=== PATIENT | male | born 1985 | race Caucasian/White ===

== ENCOUNTER 2017-08-22 17:21 | Emergency (ER) | payer MEDICAID ==
[~2017-08-22] VITALS: Ht 177.8 cm; Wt 113.0 kg
[~2017-08-22 17:21] MED LIST: HYDR-569 PO; NO HOME MEDS; PHEN-716 PO
[2017-08-22 17:46] VITALS: BP 131/39
[2017-08-22] MEDS ORDERED: dexamethasone sod phosphate 10mg/ml inj PO STA (18:31)
[2017-08-22] MEDS ORDERED: triamcinolone acetonide 40mg/ml inj IM ONE ×2 (18:35→19:05)
== END 2017-08-22 20:04 | disposition home or self-care (01) ==
LOC: ER 17:21
DX: M54.81 Occipital neuralgia (principal); J35.8 Other chronic diseases of tonsils and adenoids; J02.9 Acute pharyngitis, unspecified; L23.7 Allergic contact dermatitis due to plants, except food; J45.909 Unspecified asthma, uncomplicated; F12.90 Cannabis use, unspecified, uncomplicated; Z98.890 Other specified postprocedural states; Z79.899 Other long term (current) drug therapy
CPT/HCPCS: 96372; 99283; J1100; J3301

== ENCOUNTER 2017-09-16 17:09 | Emergency (ER) | payer MEDICAID ==
[2017-09-16] MEDS ORDERED: PRED10TA PO (17:37)
[2017-09-16] MEDS ORDERED: KEN0.1O TP (17:37)
== END 2017-09-16 17:59 | disposition home or self-care (01) ==
LOC: ER 17:09
DX: L23.7 Allergic contact dermatitis due to plants, except food (principal); F12.90 Cannabis use, unspecified, uncomplicated; J45.909 Unspecified asthma, uncomplicated; Z98.890 Other specified postprocedural states; Z79.899 Other long term (current) drug therapy
CPT/HCPCS: 99283

== ENCOUNTER 2018-02-03 20:17 | Emergency (ER) | payer MEDICAID ==
[~2018-02-03] VITALS: Ht 177.8 cm; Wt 113.6 kg
[~2018-02-03 20:17] MED LIST changes: +ASPI-41 PO; +ATOR20TA66 PO; +COL100C PO; +HYDR-4353 PO; -HYDR-569 PO; +LISI-604 PO; +LORA-269 PO; +METO50TA16 PO; +ONDA4TAB9 PO; -PHEN-716 PO
[2018-02-03 21:45] VITALS: BP 106/55
== END 2018-02-03 21:46 | disposition home or self-care (01) ==
LOC: ER 20:18
DX: I10 Essential (primary) hypertension (principal); Z48.812 Encounter for surgical aftercare following surgery on the circulatory system; I25.2 Old myocardial infarction; J45.909 Unspecified asthma, uncomplicated; F12.90 Cannabis use, unspecified, uncomplicated; Z90.49 Acquired absence of other specified parts of digestive tract; Z98.890 Other specified postprocedural states; Z79.82 Long term (current) use of aspirin; Z79.899 Other long term (current) drug therapy
CPT/HCPCS: 93005; 99283

== ENCOUNTER 2018-02-08 08:32 | Emergency (ER) | payer MEDICAID ==
[~2018-02-08] VITALS: Ht 177.8 cm; Wt 110.9 kg
[2018-02-08 08:36] VITALS: BP 135/72
[2018-02-08] MEDS ORDERED: HYDR-4353 PO (08:48)
[2018-02-08] MEDS ORDERED: ONDA4TAB9 PO (08:49)
== END 2018-02-08 09:20 | disposition home or self-care (01) ==
LOC: ER 08:32
DX: G89.18 Other acute postprocedural pain (principal); I25.2 Old myocardial infarction; J45.909 Unspecified asthma, uncomplicated; F12.90 Cannabis use, unspecified, uncomplicated; Z76.0 Encounter for issue of repeat prescription; Z48.812 Encounter for surgical aftercare following surgery on the circulatory system; Z79.899 Other long term (current) drug therapy; Z90.49 Acquired absence of other specified parts of digestive tract; Z95.1 Presence of aortocoronary bypass graft
CPT/HCPCS: 99283

== ENCOUNTER 2018-02-18 00:57 | Emergency (ER) | payer MEDICAID ==
[~2018-02-18] VITALS: Ht 177.8 cm; Wt 120.0 kg
[2018-02-18] MEDS ORDERED: morphine 4 MG/ML inj SYRINge IV ONE (01:15)
[2018-02-18] MEDS ORDERED: aspirin 81mg tab.chew PO ONE (01:15)
[2018-02-18] MEDS ORDERED: ondansetron/PF 4mg/2ml inj IV ONE (01:15)
[2018-02-18 01:42] LABS: HEMOGLOBIN 12.8 g/dl (14.0-17.9); LYMPHOCYTES % (AUTO) 36.1 % (21-51); MEAN CORPUSCULAR HGB CONC 34.6 % (33.0-36.5); MEAN PLATELET VOLUME 10.1 FL (7.4-10.4); NEUTROPHILS % (AUTO) 53.3 % (42-75); PLATELET COUNT 215 X10'3 (140-440); RED BLOOD COUNT 4.41 X10'6 (4.70-6.10); RED CELL DISTRIBUTION WIDTH 12.2 % (11.5-14.5)
[2018-02-18 01:43] LABS: BASOPHILS % (AUTO) 0.5 % (0-1); EOSINOPHILS # (AUTO) 0.4 X10'3 (0-0.9); EOSINOPHILS % (AUTO) 3.6 % (0-6); LYMPHOCYTES # (AUTO) 3.6 X10'3 (1.1-4.8); MONOCYTES # (AUTO) 0.6 X10'3 (0-0.9); MONOCYTES % (AUTO) 6.5 % (2-12); NEUTROPHILS # (AUTO) 5.4 X10'3 (1.8-7.7)
[2018-02-18 01:49] LABS: INR 1.1 INR; PARTIAL THROMBOPLASTIN TIME 30 SECONDS (22-32); PROTHROMBIN TIME 10.7 SECONDS (9.0-12.0)
[2018-02-18 01:52] LABS: ALANINE AMINOTRANSFERASE 49 U/L (12-78); ALBUMIN/GLOBULIN RATIO 1.2 (1.1-1.5); ALKALINE PHOSPHATASE 78 IU/L (46-116); ANION GAP 10 (8-16); ASPARTATE AMINO TRANSFERASE 19 U/L (10-37); BILIRUBIN,TOTAL 0.3 MG/DL (0.1-1.0); BLOOD UREA NITROGEN 23 MG/DL (7-18); BUN/CREATININE RATIO 21.5 (5.4-32.0); CALCIUM 9.4 MG/DL (8.5-10.1); CHLORIDE 101 MMOL/L (99-107); CREATININE 1.07 MG/DL (0.60-1.10); GLUCOSE 97 MG/DL (70-104); POTASSIUM 4.1 MMOL/L (3.5-5.1); SODIUM 140 MMOL/L (135-145); TOTAL CARBON DIOXIDE 28.8 MMOL/L (24-32); TOTAL PROTEIN 7.3 G/DL (6.4-8.2); eGFR 80 ML/MIN
[2018-02-18 01:58] LABS: CHOLESTEROL 154 MG/DL (0-200); HDL CHOLESTEROL 31 MG/DL (35-60); LDL CHOLESTEROL 78 MG/DL (50-100); MAGNESIUM 1.8 MG/DL (1.5-2.4); TRIGLYCERIDES 480 MG/DL (20-135)
[2018-02-18 03:18] VITALS: BP 135/72
[2018-02-18 04:25] LABS: URINE AMPHETAMINE SCREEN NEGATIVE (Neg); URINE BARBITUATE SCREEN NEGATIVE (Neg); URINE BENZODIAZEPINES SCREEN NEGATIVE (Neg); URINE CANNABINOID SCREEN POSITIVE (Neg); URINE COCAINE SCREEN NEGATIVE (Neg); URINE METHADONE SCREEN NEGATIVE (Neg); URINE OPIATE SCREEN POSITIVE (Neg); URINE PHENCYCLIDINE SCREEN NEGATIVE (Neg)
== END 2018-02-18 05:37 | disposition home or self-care (01) ==
LOC: ER 00:57
DX: R07.89 Other chest pain (principal); I25.10 Atherosclerotic heart disease of native coronary artery without angina pectoris; I25.2 Old myocardial infarction; J45.909 Unspecified asthma, uncomplicated; E78.00 Pure hypercholesterolemia, unspecified; F41.9 Anxiety disorder, unspecified; F12.10 Cannabis abuse, uncomplicated; Z90.49 Acquired absence of other specified parts of digestive tract; Z79.82 Long term (current) use of aspirin; Z79.899 Other long term (current) drug therapy; Z95.1 Presence of aortocoronary bypass graft
CPT/HCPCS: 36415; 71045; 80053; 80061; 80305; 83735; 83880; 84484; 85025; 85610; 85730; 93005; 96374; 96375; 99284; J2270; J2405

== ENCOUNTER 2018-03-04 13:17 | Emergency (ER) | payer MEDICAID ==
[~2018-03-04] VITALS: Ht 177.8 cm; Wt 113.6 kg
[~2018-03-04 13:17] MED LIST changes: -HYDR-4353 PO
[2018-03-04 13:30] VITALS: BP 161/94
[2018-03-04] MEDS ORDERED: gentamicin 0.1% topical ointment 15gm TP SCH (17:05)
[2018-03-04] MEDS ORDERED: METO50TA17 PO ×2 (17:08→17:21)
[2018-03-04] MEDS ORDERED: HYDR-4353 PO (17:08)
[2018-03-04] MEDS ORDERED: LORA1TAB PO (17:21)
== END 2018-03-04 17:33 | disposition home or self-care (01) ==
LOC: ER 13:18
DX: R07.89 Other chest pain (principal); F41.9 Anxiety disorder, unspecified; I25.10 Atherosclerotic heart disease of native coronary artery without angina pectoris; I25.2 Old myocardial infarction; J45.909 Unspecified asthma, uncomplicated; F12.90 Cannabis use, unspecified, uncomplicated; Z90.49 Acquired absence of other specified parts of digestive tract; Z98.890 Other specified postprocedural states; Z79.82 Long term (current) use of aspirin; Z79.899 Other long term (current) drug therapy; Z95.1 Presence of aortocoronary bypass graft
CPT/HCPCS: 93005; 99283

== ENCOUNTER 2018-03-08 08:15 | Emergency (ER) | payer MEDICAID ==
[~2018-03-08] VITALS: Ht 177.8 cm; Wt 113.6 kg
[~2018-03-08 08:15] MED LIST changes: +HYDR-4353 PO; +LORA1TAB PO; +METO50TA17 PO
[2018-03-08] MEDS ORDERED: aspirin 81mg tab.chew PO ONE (08:35)
[2018-03-08 09:11] LABS: BASOPHILS % (AUTO) 0.5 % (0-1); EOSINOPHILS # (AUTO) 0.2 X10'3 (0-0.9); EOSINOPHILS % (AUTO) 3.4 % (0-6); HEMATOCRIT 40.7 % (42.0-52.0); HEMOGLOBIN 13.3 g/dl (14.0-17.9); LYMPHOCYTES # (AUTO) 2.7 X10'3 (1.1-4.8); LYMPHOCYTES % (AUTO) 41.2 % (21-51); MEAN CORPUSCULAR HEMOGLOBIN 27.8 PG (27.0-31.0); MEAN CORPUSCULAR HGB CONC 32.8 % (33.0-36.5); MEAN PLATELET VOLUME 9.7 FL (7.4-10.4); MONOCYTES # (AUTO) 0.6 X10'3 (0-0.9); MONOCYTES % (AUTO) 8.6 % (2-12); NEUTROPHILS # (AUTO) 3.2 X10'3 (1.8-7.7); NEUTROPHILS % (AUTO) 46.3 % (42-75); PLATELET COUNT 192 X10'3 (140-440); RED BLOOD COUNT 4.78 X10'6 (4.70-6.10); RED CELL DISTRIBUTION WIDTH 12.5 % (11.5-14.5); WHITE BLOOD COUNT 6.7 X10'3 (4.5-11.0)
[2018-03-08 09:25] LABS: ALANINE AMINOTRANSFERASE 42 U/L (12-78); ALBUMIN 3.9 G/DL (3.4-5.0); ALBUMIN/GLOBULIN RATIO 1.1 (1.1-1.5); ALKALINE PHOSPHATASE 79 IU/L (46-116); ANION GAP 11 (8-16); ASPARTATE AMINO TRANSFERASE 15 U/L (10-37); BILIRUBIN,TOTAL 0.4 MG/DL (0.1-1.0); BLOOD UREA NITROGEN 18 MG/DL (7-18); BUN/CREATININE RATIO 17.3 (5.4-32.0); CALCIUM 9.1 MG/DL (8.5-10.1); CHLORIDE 106 MMOL/L (99-107); CREATININE 1.04 MG/DL (0.60-1.10); GLUCOSE 108 MG/DL (70-104); POTASSIUM 4.2 MMOL/L (3.5-5.1); SODIUM 142 MMOL/L (135-145); TOTAL CARBON DIOXIDE 24.9 MMOL/L (24-32); TOTAL PROTEIN 7.3 G/DL (6.4-8.2); eGFR 83 ML/MIN
[2018-03-08] MEDS ORDERED: ketorolac tromethamine 15mg/ml inj. IV ONE (10:10)
[2018-03-08] MEDS ORDERED: ketorolac trometh. 30mg/ml inj. IV ONE (10:10)
[2018-03-08 10:21] VITALS: BP 135/80
== END 2018-03-08 10:24 | disposition home or self-care (01) ==
LOC: ER 08:16
DX: R07.89 Other chest pain (principal); I25.10 Atherosclerotic heart disease of native coronary artery without angina pectoris; I25.2 Old myocardial infarction; J45.909 Unspecified asthma, uncomplicated; F12.90 Cannabis use, unspecified, uncomplicated; Z90.49 Acquired absence of other specified parts of digestive tract; Z95.1 Presence of aortocoronary bypass graft; Z98.890 Other specified postprocedural states; Z79.82 Long term (current) use of aspirin; Z79.899 Other long term (current) drug therapy
CPT/HCPCS: 36415; 71045; 80053; 83735; 83880; 84484; 85025; 93005; 96374; 99284; J1885

== ENCOUNTER 2018-05-01 11:19 | Emergency (ER) | payer MEDICAID ==
[~2018-05-01] VITALS: Ht 177.8 cm; Wt 122.0 kg
[~2018-05-01 11:19] MED LIST changes: +ALPR-624 PO; -HYDR-4353 PO; -LORA1TAB PO; -ONDA4TAB9 PO
[2018-05-01 11:53] LABS: BASOPHILS # (AUTO) 0.1 X10'3 (0-0.2); EOSINOPHILS # (AUTO) 0.1 X10'3 (0-0.9); EOSINOPHILS % (AUTO) 1.7 % (0-6); HEMATOCRIT 43.3 % (42.0-52.0); HEMOGLOBIN 14.7 g/dl (14.0-17.9); LYMPHOCYTES # (AUTO) 2.3 X10'3 (1.1-4.8); LYMPHOCYTES % (AUTO) 36.1 % (21-51); MEAN CORPUSCULAR HEMOGLOBIN 28.3 PG (27.0-31.0); MEAN CORPUSCULAR HGB CONC 33.9 g/dL (33.0-36.5); MEAN CORPUSCULAR VOLUME 83.5 FL (78-98); MEAN PLATELET VOLUME 10.1 FL (7.4-10.4); MONOCYTES # (AUTO) 0.4 X10'3 (0-0.9); MONOCYTES % (AUTO) 6.8 % (2-12); NEUTROPHILS # (AUTO) 3.5 X10'3 (1.8-7.7); NEUTROPHILS % (AUTO) 54.4 % (42-75); PLATELET COUNT 199 X10'3 (140-440); RED BLOOD COUNT 5.18 X10'6 (4.70-6.10); RED CELL DISTRIBUTION WIDTH 14.1 % (11.5-14.5); WHITE BLOOD COUNT 6.4 X10'3 (4.5-11.0)
[2018-05-01 12:05] LABS: ALANINE AMINOTRANSFERASE 71 U/L (12-78); ALBUMIN 4.3 G/DL (3.4-5.0); ALBUMIN/GLOBULIN RATIO 1.2 (1.1-1.5); ALKALINE PHOSPHATASE 83 IU/L (46-116); ANION GAP 10 (8-16); ASPARTATE AMINO TRANSFERASE 35 U/L (10-37); BILIRUBIN,TOTAL 0.5 MG/DL (0.1-1.0); BLOOD UREA NITROGEN 19 MG/DL (7-18); BUN/CREATININE RATIO 20.9 (5.4-32.0); CALCIUM 9.6 MG/DL (8.5-10.1); CHLORIDE 104 MMOL/L (99-107); CREATININE 0.91 MG/DL (0.60-1.10); GLUCOSE 109 MG/DL (70-104); POTASSIUM 4.5 MMOL/L (3.5-5.1); SODIUM 138 MMOL/L (135-145); TOTAL CARBON DIOXIDE 24.3 MMOL/L (24-32); eGFR > 90 ML/MIN
[2018-05-01 12:14] LABS: PROTHROMBIN TIME 10.3 SECONDS (9.0-12.0)
[2018-05-01 12:15] LABS: PARTIAL THROMBOPLASTIN TIME 29 SECONDS (22-32)
[2018-05-01 12:41] LABS: D-DIMER < 0.19 MG/L FEU (0-0.50)
[2018-05-01 13:04] VITALS: BP 118/61
== END 2018-05-01 13:06 | disposition home or self-care (01) ==
LOC: ER 11:20
DX: R07.9 Chest pain, unspecified (principal); I25.10 Atherosclerotic heart disease of native coronary artery without angina pectoris; I25.2 Old myocardial infarction; J45.909 Unspecified asthma, uncomplicated; F12.90 Cannabis use, unspecified, uncomplicated; Z90.49 Acquired absence of other specified parts of digestive tract; Z79.82 Long term (current) use of aspirin; Z79.899 Other long term (current) drug therapy; Z98.890 Other specified postprocedural states
CPT/HCPCS: 36415; 71045; 80053; 83880; 84484; 85025; 85379; 85610; 85730; 93005; 99284

== ENCOUNTER 2018-06-01 19:00 | Emergency (ER) | payer MEDICAID ==
[~2018-06-01] VITALS: Ht 177.8 cm; Wt 118.2 kg
[~2018-06-01 19:00] MED LIST changes: -NO HOME MEDS
[2018-06-01 19:07] VITALS: BP 119/72
[2018-06-01] MEDS ORDERED: DOXY100C43 PO (21:30)
== END 2018-06-01 22:39 | disposition home or self-care (01) ==
LOC: ER 19:01
DX: L02.213 Cutaneous abscess of chest wall (principal); I25.2 Old myocardial infarction; J45.909 Unspecified asthma, uncomplicated; I25.10 Atherosclerotic heart disease of native coronary artery without angina pectoris; F12.90 Cannabis use, unspecified, uncomplicated; Z90.49 Acquired absence of other specified parts of digestive tract; Z95.1 Presence of aortocoronary bypass graft; Z79.899 Other long term (current) drug therapy; Z79.82 Long term (current) use of aspirin; Z98.890 Other specified postprocedural states
CPT/HCPCS: 10060; 99283

== ENCOUNTER 2018-06-08 12:09 | Observation (INO) | payer MEDICAID ==
[~2018-06-08] VITALS: Ht 177.8 cm; Wt 120.5 kg
[~2018-06-08 12:09] MED LIST changes: +DOXY100C43 PO
[2018-06-08 12:35] LABS: BASOPHILS # (AUTO) 0.1 X10'3 (0-0.2); BASOPHILS % (AUTO) 0.9 % (0-1); EOSINOPHILS # (AUTO) 0.2 X10'3 (0-0.9); EOSINOPHILS % (AUTO) 2.8 % (0-6); HEMATOCRIT 42.5 % (42.0-52.0); HEMOGLOBIN 14.5 g/dl (14.0-17.9); LYMPHOCYTES # (AUTO) 2.5 X10'3 (1.1-4.8); LYMPHOCYTES % (AUTO) 36.1 % (21-51); MEAN CORPUSCULAR HEMOGLOBIN 28.6 PG (27.0-31.0); MEAN CORPUSCULAR HGB CONC 34.2 g/dL (33.0-36.5); MEAN CORPUSCULAR VOLUME 83.7 FL (78-98); MEAN PLATELET VOLUME 10.2 FL (7.4-10.4); MONOCYTES # (AUTO) 0.6 X10'3 (0-0.9); MONOCYTES % (AUTO) 8.2 % (2-12); NEUTROPHILS # (AUTO) 3.6 X10'3 (1.8-7.7); PLATELET COUNT 203 X10'3 (140-440); RED BLOOD COUNT 5.08 X10'6 (4.70-6.10); RED CELL DISTRIBUTION WIDTH 14.7 % (11.5-14.5)
[2018-06-08] MEDS ORDERED: LORazepam 1 MG tablet PO ONE (12:45)
[2018-06-08 12:46] LABS: ALANINE AMINOTRANSFERASE 66 U/L (12-78); ALBUMIN 4.2 G/DL (3.4-5.0); ALBUMIN/GLOBULIN RATIO 1.2 (1.1-1.5); ALKALINE PHOSPHATASE 82 IU/L (46-116); ANION GAP 10 (8-16); ASPARTATE AMINO TRANSFERASE 39 U/L (10-37); BILIRUBIN,TOTAL 0.8 MG/DL (0.1-1.0); BLOOD UREA NITROGEN 15 MG/DL (7-18); BUN/CREATININE RATIO 15.5 (5.4-32.0); CALCIUM 9.6 MG/DL (8.5-10.1); CHLORIDE 105 MMOL/L (99-107); CREATININE 0.97 MG/DL (0.60-1.10); GLUCOSE 101 MG/DL (70-104); POTASSIUM 4.2 MMOL/L (3.5-5.1); SODIUM 139 MMOL/L (135-145); TOTAL CARBON DIOXIDE 23.7 MMOL/L (24-32); TOTAL PROTEIN 7.7 G/DL (6.4-8.2); eGFR 90 ML/MIN
[2018-06-08 12:54] LABS: D-DIMER < 0.19 MG/L FEU (0-0.50); INR 1.1 INR; PARTIAL THROMBOPLASTIN TIME 31 SECONDS (22-32); PROTHROMBIN TIME 10.7 SECONDS (9.0-12.0)
[2018-06-08] MEDS ORDERED: ASPI-845 PO (13:02)
[2018-06-08] MEDS ORDERED: ATOR80TA PO (13:02)
[2018-06-08] MEDS ORDERED: LISI-604 PO (13:02)
[2018-06-08] MEDS ORDERED: METO-467 PO (13:03)
[2018-06-08] MEDS ORDERED: mag hydrox/Alum hydrox/simeth 30ml oral suspension PO PRN (13:35)
[2018-06-08] MEDS ORDERED: nitroGLYCERIN 0.4mg SUBLingual tab SL PRN (13:35)
[2018-06-08] MEDS ORDERED: ondansetron/PF 4mg/2ml inj IV PRN (13:35)
[2018-06-08] MEDS ORDERED: regadenoson 0.4mg/5ml syringe IV ONE (13:35)
[2018-06-08] MEDS ORDERED: acetaminophen 325mg tablet PO PRN (13:35)
[2018-06-08] MEDS ORDERED: magnesium hydroxide 30ml (MOM) UD suspension PO PRN (13:35)
[2018-06-08] MEDS ORDERED: aminophylline 250mg/10ml inj. IV PRN (13:35)
[2018-06-08] MEDS ORDERED: metoprolol tartrate 1mg/ml inj IV PRN (13:35)
[2018-06-08] MEDS ORDERED: regadenoson 0.4mg/5ml syringe IV PRN (13:45)
--- NOTE | 2018-06-08 13:55 | NUR ---
DR DEJESUS HOSPITALIST STATED THAT PATIENT CAN EAT UNTIL MIDNIGHT
--- NOTE | 2018-06-08 16:28 | NUR ---
Patient in room [facility]. I have received report from Marley REDD and had the opportunity to ask questions and assume patient care.
[2018-06-08] MEDS: hydrOXYzine 25 MG tablet PO PRN ×2 (17:00→22:47)
[2018-06-08 17:03] VITALS: BP 121/69
--- NOTE | 2018-06-08 18:06 | NUR ---
Orientated to room. Tele placed. meds given for anxiety per dr Avina. No c/o chest pain, patient agreed to staay until stress test in am. as he is in the process of moving, and is very anxoius about this. report given to Shagufta REDD
[2018-06-08] MEDS: metoprolol tartrate 50mg tablet PO SCH (19:48)
[2018-06-08 20:00] VITALS: BP 134/60
[2018-06-09] VITALS (14 sets, daily range): BP systolic 109–149; BP diastolic 69–121
--- NOTE | 2018-06-09 02:20 | NUR ---
Patient in room [facility]. I have received report from IVANIA Baptiste and had the opportunity to ask questions and assume patient care. Addendum: 06/09/18 at 0221 by Shagufta Thomas RN Amended: Links added.
[2018-06-09 05:03] LABS: BASOPHILS % (AUTO) 0.7 % (0-1); EOSINOPHILS # (AUTO) 0.2 X10'3 (0-0.9); EOSINOPHILS % (AUTO) 3.6 % (0-6); HEMATOCRIT 40.7 % (42.0-52.0); HEMOGLOBIN 13.8 g/dl (14.0-17.9); LYMPHOCYTES # (AUTO) 3.2 X10'3 (1.1-4.8); LYMPHOCYTES % (AUTO) 46.5 % (21-51); MEAN CORPUSCULAR HEMOGLOBIN 28.5 PG (27.0-31.0); MEAN CORPUSCULAR HGB CONC 33.7 g/dL (33.0-36.5); MEAN CORPUSCULAR VOLUME 84.5 FL (78-98); MONOCYTES # (AUTO) 0.6 X10'3 (0-0.9); MONOCYTES % (AUTO) 8.7 % (2-12); NEUTROPHILS # (AUTO) 2.8 X10'3 (1.8-7.7); NEUTROPHILS % (AUTO) 40.5 % (42-75); PLATELET COUNT 168 X10'3 (140-440); RED BLOOD COUNT 4.82 X10'6 (4.70-6.10); RED CELL DISTRIBUTION WIDTH 14.4 % (11.5-14.5); WHITE BLOOD COUNT 6.8 X10'3 (4.5-11.0)
[2018-06-09 05:35] LABS: ALBUMIN 3.6 G/DL (3.4-5.0); ANION GAP 8 (8-16); BLOOD UREA NITROGEN 19 MG/DL (7-18); BUN/CREATININE RATIO 18.1 (5.4-32.0); CALCIUM 9.3 MG/DL (8.5-10.1); CHLORIDE 107 MMOL/L (99-107); CREATININE 1.05 MG/DL (0.60-1.10); GLUCOSE 104 MG/DL (70-104); SODIUM 140 MMOL/L (135-145); TROPONIN I < 0.04 NG/ML (0.0-0.05); eGFR 82 ML/MIN
--- NOTE | 2018-06-09 06:33 | NUR ---
Problems reprioritized. Patient report given, questions answered & plan of care reviewed with IVANIA Acharya. Addendum: 06/09/18 at 0634 by Shagufta Thomas RN Amended: Links added.
--- NOTE | 2018-06-09 07:18 | NUR ---
PAGER ID: [phone] MESSAGE: [id number] Davian Koch PT. has been NPO since midnight for stress test this AM. BP 109/73, HR 66 OK to give meds before test?: aspirin, lisinopril, metroprolol, atorvastatin? Patrizia [id number]
[2018-06-09] MEDS: metoprolol tartrate 50mg tablet PO SCH (07:24)
[2018-06-09] MEDS ORDERED: atorvastatin 20mg tablet PO SCH (08:00)
[2018-06-09] MEDS ORDERED: aspirin 325mg tablet, delayed-release (Ecotrin) PO SCH (08:00)
[2018-06-09] MEDS ORDERED: non-formulary drug (Atorvastatin Calcium (Lipitor) 1 TAB) PO SCH (08:00)
[2018-06-09] MEDS ORDERED: lisinopril 5mg tablet PO SCH (08:00)
--- NOTE | 2018-06-09 08:58 | NUR ---
PAGER ID: [phone] MESSAGE: [id number] SHARI Colon HAVING CURRENT CHEST PAIN AFTER LEXISCAN ADMIN. EKG RAN. MUST READ EKG WITHIN 10 MIN PER PROTOCOL. THANK YOU TRU REDD [id number] REPLIED IMMEDIATELY, READ EKG, NO STEMI, RECOMMENDED NITRO PRN PER ORDER AND ORDER URINE TOX., PT. REFUSED DUE TO ONCOMING LEXISCAN TEST AND DENIED HAVING CHEST PAIN ANYMORE. VITALS TAKEN AND WERE STABLE. WILL CONT. TO MONITOR ON MY SHIFT. PT. AWARE NITRO IS AVAILABLE ON FLOOR AND IN MINI TEST / NUCLEAR MED
[2018-06-09] MEDS ORDERED: aminophylline inj. 10 ML IV ONE (10:12)
[2018-06-09] MEDS ORDERED: regadenoson 0.4mg/5ml syringe IV ONE (10:13)
[2018-06-09] MEDS ORDERED: clonazePAM 0.5mg tablet PO PRN (10:45)
[2018-06-09 11:20] LABS: URINE AMPHETAMINE SCREEN NEGATIVE (Neg); URINE BARBITUATE SCREEN NEGATIVE (Neg); URINE BENZODIAZEPINES SCREEN NEGATIVE (Neg); URINE CANNABINOID SCREEN POSITIVE (Neg); URINE COCAINE SCREEN NEGATIVE (Neg); URINE METHADONE SCREEN NEGATIVE (Neg); URINE OPIATE SCREEN NEGATIVE (Neg); URINE PHENCYCLIDINE SCREEN NEGATIVE (Neg)
--- NOTE | 2018-06-09 13:13 | NUR ---
Patient was wanting to leave AMA due to his neighbor causing problems. I spoke to Dr Rebollar regarding patient wanting to leave AMA. Per Dr Rebollar he would like patient to be seen by a audience development manager due to abdnormal Stress test. Dr Rebollar stated I could give patient another dose of 0.25MG PO Klonopin, Dr Rebollar aware patient patient had 0.25mg PO 2 hours ago. I spoke to patient and he stated he will stay he does not want to leave if his test was abnormal. Patient very pleasant and compliant I told him if I get an available bed I will move him.
[2018-06-09] MEDS ORDERED: clonazePAM 0.5mg tablet PO ONE (13:15)
[2018-06-09] MEDS ORDERED: CLON-528 PO (15:16)
[2018-06-09] MEDS ORDERED: NITR0.4T51 SL (15:16)
[2018-06-09] MEDS ORDERED: ASPI81TA52 PO (15:16)
--- NOTE | 2018-06-09 17:31 | NUR ---
pt. discharged in a stable condition. Tele discontinued, cleaned and return. IV removed, pressure bandage applied, no s/sx bleeding. Discharge paperwork reviewed with pt. He understands he is supposed to follow up with his primary care provider. reviewed new medications with ptDann bedside delivery provided medications. Pt. left with all of his belongings, escorted by a hospital staff member to a private vehicle to leave to his home. Education provided on s/sx of chest pain, and pt. knows to return to the ER if any more symptoms occur.
== END 2018-06-09 17:00 | disposition home or self-care (01) ==
LOC: ER 12:11 → ED HOLD 13:31 → SUR 3N 15:40
PROVIDERS: ADMIT Hospitalist; ATTEND Hospitalist
DX: R07.89 Other chest pain (principal); I25.10 Atherosclerotic heart disease of native coronary artery without angina pectoris; I10 Essential (primary) hypertension; E78.00 Pure hypercholesterolemia, unspecified; J45.909 Unspecified asthma, uncomplicated; F41.9 Anxiety disorder, unspecified; I25.2 Old myocardial infarction; I24.9 Acute ischemic heart disease, unspecified; Z95.1 Presence of aortocoronary bypass graft
CPT/HCPCS: 36415; 71045; 78452; 80048; 80053; 80305; 83735; 83880; 84484; 85025; 85379; 85610; 85730; 87070; 93005; 93017; 96374; 99284; A9500; G0378; J0280; Q0177

== ENCOUNTER 2018-07-01 19:00 | Emergency (ER) | payer MEDICAID ==
[~2018-07-01] VITALS: Ht 177.8 cm; Wt 118.2 kg
[~2018-07-01 19:00] MED LIST changes: -ALPR-624 PO; -ASPI-41 PO; +ASPI81TA52 PO; -ATOR20TA66 PO; +ATOR80TA PO; +CLON-528 PO; -COL100C PO; -DOXY100C43 PO; -LORA-269 PO; +METO-467 PO; -METO50TA16 PO; -METO50TA17 PO; +NITR0.4T51 SL
[2018-07-01 19:30] LABS: BASOPHILS # (AUTO) 0.1 X10'3 (0-0.2); BASOPHILS % (AUTO) 0.9 % (0-1); EOSINOPHILS # (AUTO) 0.2 X10'3 (0-0.9); EOSINOPHILS % (AUTO) 2.1 % (0-6); HEMATOCRIT 43.2 % (42.0-52.0); HEMOGLOBIN 14.5 g/dl (14.0-17.9); LYMPHOCYTES # (AUTO) 2.9 X10'3 (1.1-4.8); LYMPHOCYTES % (AUTO) 34.3 % (21-51); MEAN CORPUSCULAR HEMOGLOBIN 28.5 PG (27.0-31.0); MEAN CORPUSCULAR HGB CONC 33.5 g/dL (33.0-36.5); MEAN PLATELET VOLUME 10.4 FL (7.4-10.4); MONOCYTES # (AUTO) 0.6 X10'3 (0-0.9); MONOCYTES % (AUTO) 7.1 % (2-12); NEUTROPHILS # (AUTO) 4.8 X10'3 (1.8-7.7); NEUTROPHILS % (AUTO) 55.6 % (42-75); PLATELET COUNT 161 X10'3 (140-440); RED BLOOD COUNT 5.08 X10'6 (4.70-6.10); RED CELL DISTRIBUTION WIDTH 14.1 % (11.5-14.5); WHITE BLOOD COUNT 8.6 X10'3 (4.5-11.0)
[2018-07-01 19:44] LABS: PARTIAL THROMBOPLASTIN TIME 29 SECONDS (22-32)
[2018-07-01 19:52] LABS: ALANINE AMINOTRANSFERASE 67 U/L (12-78); ALBUMIN 4.3 G/DL (3.4-5.0); ALBUMIN/GLOBULIN RATIO 1.3 (1.1-1.5); ALKALINE PHOSPHATASE 87 IU/L (46-116); ANION GAP 10 (8-16); ASPARTATE AMINO TRANSFERASE 25 U/L (10-37); BILIRUBIN,TOTAL 0.7 MG/DL (0.1-1.0); BLOOD UREA NITROGEN 14 MG/DL (7-18); CALCIUM 9.4 MG/DL (8.5-10.1); CHLORIDE 105 MMOL/L (99-107); POTASSIUM 3.7 MMOL/L (3.5-5.1); SODIUM 141 MMOL/L (135-145); TOTAL CARBON DIOXIDE 25.6 MMOL/L (24-32); TOTAL PROTEIN 7.5 G/DL (6.4-8.2); eGFR 87 ML/MIN
[2018-07-01 19:54] LABS: GLUCOSE 136 MG/DL (70-104)
[2018-07-01 20:22] VITALS: BP 109/58
== END 2018-07-01 20:23 | disposition home or self-care (01) ==
LOC: ER 19:01
DX: R07.89 Other chest pain (principal); I25.10 Atherosclerotic heart disease of native coronary artery without angina pectoris; E78.00 Pure hypercholesterolemia, unspecified; I10 Essential (primary) hypertension; I25.2 Old myocardial infarction; J45.909 Unspecified asthma, uncomplicated; F12.90 Cannabis use, unspecified, uncomplicated; Z90.49 Acquired absence of other specified parts of digestive tract; Z95.1 Presence of aortocoronary bypass graft; Z98.890 Other specified postprocedural states; Z79.82 Long term (current) use of aspirin; Z79.899 Other long term (current) drug therapy
CPT/HCPCS: 36415; 71045; 80053; 84484; 85025; 85610; 85730; 93005; 99284

== ENCOUNTER 2018-07-05 21:49 | Emergency (ER) | payer MEDICAID ==
[~2018-07-05] VITALS: Ht 177.8 cm; Wt 118.2 kg
[2018-07-05 22:00] VITALS: BP 141/96
--- NOTE | 2018-07-05 23:31 | NUR ---
Call placed to number on file after attempting to Rm 3 times. Left message expressing concern for Pt.'s wellbeing and encouraged him to return for Eval. Dr. Jasso informed.
== END 2018-07-05 23:16 | disposition left against medical advice (07) ==
LOC: ER 21:50
DX: R07.89 Other chest pain (principal); Z53.21 Procedure and treatment not carried out due to patient leaving prior to being seen by health care provider
CPT/HCPCS: 71046; 93005

== ENCOUNTER 2018-09-14 17:10 | Emergency (ER) | payer MEDICAID ==
[~2018-09-14] VITALS: Ht 177.8 cm; Wt 118.0 kg
[2018-09-14 18:03] LABS: CHLORIDE 103 MMOL/L (99-107); GLUCOSE 92 MG/DL (70-104); SODIUM 141 MMOL/L (135-145); TOTAL CARBON DIOXIDE 25.1 MMOL/L (24-32)
[2018-09-14 18:04] LABS: ALANINE AMINOTRANSFERASE 61 U/L (12-78); ALBUMIN 4.3 G/DL (3.4-5.0); ALBUMIN/GLOBULIN RATIO 1.1 (1.1-1.5); ALKALINE PHOSPHATASE 94 IU/L (46-116); ANION GAP 13 (8-16); ASPARTATE AMINO TRANSFERASE 25 U/L (10-37); BILIRUBIN,TOTAL 0.4 MG/DL (0.1-1.0); BLOOD UREA NITROGEN 11 MG/DL (7-18); CALCIUM 9.3 MG/DL (8.5-10.1); TOTAL PROTEIN 8.1 G/DL (6.4-8.2); eGFR 87 ML/MIN
[2018-09-14] MEDS ORDERED: LORazepam 2 mg/ml vial IV ONE (18:05)
[2018-09-14 18:13] LABS: BASOPHILS % (AUTO) 0.6 % (0-1); EOSINOPHILS # (AUTO) 0.1 X10'3 (0-0.9); EOSINOPHILS % (AUTO) 1.7 % (0-6); HEMATOCRIT 43.9 % (42.0-52.0); HEMOGLOBIN 14.8 g/dl (14.0-17.9); LYMPHOCYTES # (AUTO) 2.9 X10'3 (1.1-4.8); LYMPHOCYTES % (AUTO) 39.5 % (21-51); MEAN CORPUSCULAR HEMOGLOBIN 29.7 PG (27.0-31.0); MEAN CORPUSCULAR HGB CONC 33.6 g/dL (33.0-36.5); MEAN CORPUSCULAR VOLUME 88.1 FL (78-98); MEAN PLATELET VOLUME 11.2 FL (7.4-10.4); MONOCYTES # (AUTO) 0.6 X10'3 (0-0.9); MONOCYTES % (AUTO) 7.9 % (2-12); NEUTROPHILS # (AUTO) 3.7 X10'3 (1.8-7.7); NEUTROPHILS % (AUTO) 50.3 % (42-75); PLATELET COUNT 155 X10'3 (140-440); POTASSIUM 3.6 MMOL/L (3.5-5.1); RED BLOOD COUNT 4.98 X10'6 (4.70-6.10); RED CELL DISTRIBUTION WIDTH 13.6 % (11.5-14.5); WHITE BLOOD COUNT 7.3 X10'3 (4.5-11.0)
[2018-09-14 18:15] LABS: PARTIAL THROMBOPLASTIN TIME 21 SECONDS (22-32)
[2018-09-14] MEDS ORDERED: normal saline 1000ML IV soln IVB ONE (18:55)
[2018-09-14 20:10] LABS: LARGE PLATELETS MODERATE; PLATELET ESTIMATE NORMAL
[2018-09-14 20:47] VITALS: BP 146/86
[2018-09-14] MEDS ORDERED: LORazepam 1 MG tablet PO ONE (21:05)
== END 2018-09-14 21:45 | disposition home or self-care (01) ==
LOC: ER 17:10
DX: F41.9 Anxiety disorder, unspecified (principal); R07.89 Other chest pain; I25.10 Atherosclerotic heart disease of native coronary artery without angina pectoris; E78.00 Pure hypercholesterolemia, unspecified; I10 Essential (primary) hypertension; I25.2 Old myocardial infarction; J45.909 Unspecified asthma, uncomplicated; F12.90 Cannabis use, unspecified, uncomplicated; Z90.49 Acquired absence of other specified parts of digestive tract; Z98.890 Other specified postprocedural states; Z79.82 Long term (current) use of aspirin; Z79.899 Other long term (current) drug therapy
CPT/HCPCS: 36415; 71045; 80053; 84484; 85025; 85610; 85730; 93005; 96374; 99284; J2060; J7030

== ENCOUNTER 2018-09-16 15:11 | Emergency (ER) | payer MEDICAID ==
[~2018-09-16] VITALS: Ht 177.8 cm; Wt 118.2 kg
[2018-09-16 15:37] VITALS: BP 154/92
[2018-09-16] MEDS ORDERED: LORazepam 0.5 MG tablet PO STA (15:57)
[2018-09-16] MEDS ORDERED: CLON-528 PO (16:02)
== END 2018-09-16 16:15 | disposition home or self-care (01) ==
LOC: ER 15:12
DX: F41.9 Anxiety disorder, unspecified (principal); I25.10 Atherosclerotic heart disease of native coronary artery without angina pectoris; E78.00 Pure hypercholesterolemia, unspecified; I10 Essential (primary) hypertension; I25.2 Old myocardial infarction; J45.909 Unspecified asthma, uncomplicated; F12.90 Cannabis use, unspecified, uncomplicated; Z90.49 Acquired absence of other specified parts of digestive tract; Z98.890 Other specified postprocedural states; Z95.1 Presence of aortocoronary bypass graft; Z79.82 Long term (current) use of aspirin; Z79.899 Other long term (current) drug therapy
CPT/HCPCS: 93005; 99284

== ENCOUNTER 2018-10-11 23:09 | Emergency (ER) | payer MEDICAID ==
[~2018-10-11] VITALS: Ht 177.8 cm; Wt 119.0 kg
[2018-10-11] MEDS ORDERED: aspirin 81mg tab.chew PO ONE (23:15)
[2018-10-11] MEDS ORDERED: LORazepam 0.5 MG tablet PO PRN (23:40)
[2018-10-11 23:44] LABS: BASOPHILS # (AUTO) 0.1 X10'3 (0-0.2); BASOPHILS % (AUTO) 0.6 % (0-1); EOSINOPHILS # (AUTO) 0.2 X10'3 (0-0.9); EOSINOPHILS % (AUTO) 2.2 % (0-6); HEMATOCRIT 42.6 % (42.0-52.0); HEMOGLOBIN 15.2 g/dl (14.0-17.9); LYMPHOCYTES # (AUTO) 3.8 X10'3 (1.1-4.8); LYMPHOCYTES % (AUTO) 44.1 % (21-51); MEAN CORPUSCULAR HGB CONC 35.8 g/dL (33.0-36.5); MEAN CORPUSCULAR VOLUME 86.5 FL (78-98); MEAN PLATELET VOLUME 10.8 FL (7.4-10.4); MONOCYTES # (AUTO) 0.5 X10'3 (0-0.9); MONOCYTES % (AUTO) 6.2 % (2-12); NEUTROPHILS % (AUTO) 46.9 % (42-75); PLATELET COUNT 169 X10'3 (140-440); RED BLOOD COUNT 4.92 X10'6 (4.70-6.10); RED CELL DISTRIBUTION WIDTH 13.3 % (11.5-14.5); WHITE BLOOD COUNT 8.5 X10'3 (4.5-11.0)
[2018-10-11 23:50] LABS: ALBUMIN 3.9 G/DL (3.4-5.0); CREATININE 0.97 MG/DL (0.60-1.10); TOTAL CARBON DIOXIDE 25.3 MMOL/L (24-32); eGFR 90 ML/MIN
[2018-10-12 00:07] LABS: PARTIAL THROMBOPLASTIN TIME 30 SECONDS (22-32)
[2018-10-12 00:12] LABS: ALANINE AMINOTRANSFERASE 53 U/L (12-78); ALBUMIN/GLOBULIN RATIO 1.1 (1.1-1.5); ALKALINE PHOSPHATASE 87 IU/L (46-116); ANION GAP 11 (8-16); ASPARTATE AMINO TRANSFERASE 27 U/L (10-37); BILIRUBIN,TOTAL 0.2 MG/DL (0.1-1.0); BLOOD UREA NITROGEN 13 MG/DL (7-18); BUN/CREATININE RATIO 13.4 (5.4-32.0); CALCIUM 9.2 MG/DL (8.5-10.1); CHLORIDE 105 MMOL/L (99-107); GLUCOSE 122 MG/DL (70-104); POTASSIUM 4.5 MMOL/L (3.5-5.1); SODIUM 141 MMOL/L (135-145); TOTAL PROTEIN 7.5 G/DL (6.4-8.2)
[2018-10-12 00:21] LABS: LARGE PLATELETS MODERATE; PLATELET ESTIMATE NORMAL
[2018-10-12 01:22] VITALS: BP 107/71
== END 2018-10-12 01:20 | disposition home or self-care (01) ==
LOC: ER 23:10
DX: R07.89 Other chest pain (principal); R05 Cough; I25.10 Atherosclerotic heart disease of native coronary artery without angina pectoris; E78.00 Pure hypercholesterolemia, unspecified; I10 Essential (primary) hypertension; I25.2 Old myocardial infarction; J45.909 Unspecified asthma, uncomplicated; F41.9 Anxiety disorder, unspecified; F12.90 Cannabis use, unspecified, uncomplicated; Z90.49 Acquired absence of other specified parts of digestive tract; Z95.1 Presence of aortocoronary bypass graft; Z98.890 Other specified postprocedural states; Z79.82 Long term (current) use of aspirin; Z79.899 Other long term (current) drug therapy
CPT/HCPCS: 36415; 71045; 80053; 84484; 85025; 85610; 85730; 93005; 99284

== ENCOUNTER → 2018-10-20 | Emergency (ER) | payer MEDICAID ==
[~2018-10-20] VITALS: Ht 177.8 cm; Wt 118.2 kg
[2018-10-20 09:35] VITALS: BP 148/77
[2018-10-20 11:24] LABS: ALANINE AMINOTRANSFERASE 71 U/L (12-78); ALBUMIN 4.1 G/DL (3.4-5.0); ALBUMIN/GLOBULIN RATIO 1.1 (1.1-1.5); ALKALINE PHOSPHATASE 81 IU/L (46-116); ANION GAP 10 (8-16); ASPARTATE AMINO TRANSFERASE 25 U/L (10-37); BILIRUBIN,TOTAL 0.7 MG/DL (0.1-1.0); BLOOD UREA NITROGEN 13 MG/DL (7-18); BUN/CREATININE RATIO 13.5 (5.4-32.0); CHLORIDE 105 MMOL/L (99-107); CREATININE 0.96 MG/DL (0.60-1.10); GLUCOSE 96 MG/DL (70-104); POTASSIUM 4.2 MMOL/L (3.5-5.1); SODIUM 139 MMOL/L (135-145); TOTAL CARBON DIOXIDE 24.4 MMOL/L (24-32); TOTAL PROTEIN 7.7 G/DL (6.4-8.2); eGFR > 90 ML/MIN
[2018-10-20 12:23] LABS: PARTIAL THROMBOPLASTIN TIME 32 SECONDS (22-32)
[2018-10-20 12:27] LABS: BASOPHILS % (AUTO) 0.6 % (0-1); EOSINOPHILS # (AUTO) 0.1 X10'3 (0-0.9); EOSINOPHILS % (AUTO) 2.5 % (0-6); HEMATOCRIT 42.9 % (42.0-52.0); HEMOGLOBIN 14.6 g/dl (14.0-17.9); LYMPHOCYTES # (AUTO) 2.6 X10'3 (1.1-4.8); LYMPHOCYTES % (AUTO) 47.3 % (21-51); MEAN CORPUSCULAR HGB CONC 34.1 g/dL (33.0-36.5); MEAN CORPUSCULAR VOLUME 85.1 FL (78-98); MONOCYTES # (AUTO) 0.5 X10'3 (0-0.9); MONOCYTES % (AUTO) 8.2 % (2-12); NEUTROPHILS # (AUTO) 2.3 X10'3 (1.8-7.7); NEUTROPHILS % (AUTO) 41.4 % (42-75); PLATELET COUNT 165 X10'3 (140-440); RED BLOOD COUNT 5.04 X10'6 (4.70-6.10); RED CELL DISTRIBUTION WIDTH 13.4 % (11.5-14.5); WHITE BLOOD COUNT 5.6 X10'3 (4.5-11.0)
[2018-10-20 12:34] LABS: GIANT PLATELET FEW; PLATELET ESTIMATE NORMAL
== END | disposition home or self-care (01) ==
LOC: ER 09:21
DX: R07.89 Other chest pain (principal); R06.02 Shortness of breath; I25.10 Atherosclerotic heart disease of native coronary artery without angina pectoris; E78.00 Pure hypercholesterolemia, unspecified; I10 Essential (primary) hypertension; I25.2 Old myocardial infarction; J45.909 Unspecified asthma, uncomplicated; F41.9 Anxiety disorder, unspecified; F12.90 Cannabis use, unspecified, uncomplicated; Z90.49 Acquired absence of other specified parts of digestive tract; Z95.1 Presence of aortocoronary bypass graft; Z98.890 Other specified postprocedural states; Z79.82 Long term (current) use of aspirin; Z79.899 Other long term (current) drug therapy
CPT/HCPCS: 36415; 71045; 80053; 84484; 85025; 85610; 85730; 93005; 99284

== ENCOUNTER 2018-11-23 20:35 | Emergency (ER) | payer MEDICAID ==
[~2018-11-23] VITALS: Ht 177.8 cm; Wt 118.2 kg
[2018-11-23] MEDS ORDERED: aspirin 81mg tab.chew PO ONE ×2 (20:55)
[2018-11-23] MEDS ORDERED: LORazepam 1 MG tablet PO ONE (21:00)
[2018-11-23 21:17] LABS: BASOPHILS # (AUTO) 0.1 X10'3 (0-0.2); BASOPHILS % (AUTO) 0.8 % (0-1); EOSINOPHILS % (AUTO) 0.6 % (0-6); HEMATOCRIT 39.9 % (42.0-52.0); HEMOGLOBIN 13.6 g/dl (14.0-17.9); LYMPHOCYTES # (AUTO) 2.9 X10'3 (1.1-4.8); LYMPHOCYTES % (AUTO) 33.8 % (21-51); MEAN CORPUSCULAR HEMOGLOBIN 29.3 PG (27.0-31.0); MEAN CORPUSCULAR HGB CONC 34.1 g/dL (33.0-36.5); MEAN PLATELET VOLUME 10.9 FL (7.4-10.4); MONOCYTES # (AUTO) 0.5 X10'3 (0-0.9); MONOCYTES % (AUTO) 5.6 % (2-12); NEUTROPHILS # (AUTO) 5.1 X10'3 (1.8-7.7); NEUTROPHILS % (AUTO) 59.2 % (42-75); PLATELET COUNT 168 X10'3 (140-440); RED BLOOD COUNT 4.64 X10'6 (4.70-6.10); RED CELL DISTRIBUTION WIDTH 13.4 % (11.5-14.5); WHITE BLOOD COUNT 8.7 X10'3 (4.5-11.0)
[2018-11-23 21:25] LABS: PARTIAL THROMBOPLASTIN TIME 27 SECONDS (22-32)
[2018-11-23 21:28] LABS: ALANINE AMINOTRANSFERASE 53 U/L (12-78); ALBUMIN 4.2 G/DL (3.4-5.0); ALBUMIN/GLOBULIN RATIO 1.2 (1.1-1.5); ANION GAP 14 (8-16); ASPARTATE AMINO TRANSFERASE 26 U/L (10-37); BILIRUBIN,TOTAL 0.4 MG/DL (0.1-1.0); BLOOD UREA NITROGEN 11 MG/DL (7-18); BUN/CREATININE RATIO 6.3 (5.4-32.0); CALCIUM 9.2 MG/DL (8.5-10.1); CHLORIDE 101 MMOL/L (99-107); CREATININE 1.75 MG/DL (0.60-1.10); GLUCOSE 107 MG/DL (70-104); POTASSIUM 3.8 MMOL/L (3.5-5.1); SODIUM 141 MMOL/L (135-145); TOTAL CARBON DIOXIDE 25.9 MMOL/L (24-32); TOTAL PROTEIN 7.6 G/DL (6.4-8.2); eGFR 45 ML/MIN
[2018-11-23 21:29] LABS: ALKALINE PHOSPHATASE 74 IU/L (46-116)
[2018-11-23 21:39] LABS: LARGE PLATELETS MANY; PLATELET ESTIMATE NORMAL
[2018-11-23 21:59] VITALS: BP 140/72
== END 2018-11-23 21:58 | disposition home or self-care (01) ==
LOC: ER 20:36
DX: R07.89 Other chest pain (principal); R42 Dizziness and giddiness; I25.10 Atherosclerotic heart disease of native coronary artery without angina pectoris; E78.00 Pure hypercholesterolemia, unspecified; I10 Essential (primary) hypertension; I25.2 Old myocardial infarction; J45.909 Unspecified asthma, uncomplicated; F41.9 Anxiety disorder, unspecified; F12.90 Cannabis use, unspecified, uncomplicated; Z90.49 Acquired absence of other specified parts of digestive tract; Z95.1 Presence of aortocoronary bypass graft; Z98.890 Other specified postprocedural states; Z79.82 Long term (current) use of aspirin; Z79.899 Other long term (current) drug therapy
CPT/HCPCS: 36415; 71045; 80053; 83735; 83880; 84484; 85025; 85610; 85730; 93005; 99284

== ENCOUNTER 2018-12-29 21:07 | Emergency (ER) | payer MEDICAID ==
[~2018-12-29] VITALS: Ht 177.8 cm; Wt 118.0 kg
[2018-12-29 21:58] LABS: BASOPHILS % (AUTO) 0.5 % (0-1); EOSINOPHILS # (AUTO) 0.2 X10'3 (0-0.9); EOSINOPHILS % (AUTO) 2.9 % (0-6); HEMATOCRIT 40.4 % (42.0-52.0); HEMOGLOBIN 13.9 g/dl (14.0-17.9); LYMPHOCYTES % (AUTO) 36.2 % (21-51); MEAN CORPUSCULAR HGB CONC 34.4 g/dL (33.0-36.5); MEAN CORPUSCULAR VOLUME 87.2 FL (78-98); MEAN PLATELET VOLUME 10.9 FL (7.4-10.4); MONOCYTES # (AUTO) 0.7 X10'3 (0-0.9); NEUTROPHILS # (AUTO) 4.3 X10'3 (1.8-7.7); NEUTROPHILS % (AUTO) 52.4 % (42-75); PLATELET COUNT 149 X10'3 (140-440); RED BLOOD COUNT 4.63 X10'6 (4.70-6.10); RED CELL DISTRIBUTION WIDTH 13.3 % (11.5-14.5); WHITE BLOOD COUNT 8.3 X10'3 (4.5-11.0)
[2018-12-29 22:08] LABS: ALANINE AMINOTRANSFERASE 70 U/L (12-78); ALBUMIN/GLOBULIN RATIO 1.1 (1.1-1.5); ALKALINE PHOSPHATASE 76 IU/L (46-116); ANION GAP 11 (8-16); ASPARTATE AMINO TRANSFERASE 48 U/L (10-37); BILIRUBIN,TOTAL 0.4 MG/DL (0.1-1.0); BLOOD UREA NITROGEN 18 MG/DL (7-18); BUN/CREATININE RATIO 17.1 (5.4-32.0); CALCIUM 8.9 MG/DL (8.5-10.1); CHLORIDE 103 MMOL/L (99-107); CREATININE 1.05 MG/DL (0.60-1.10); GLUCOSE 102 MG/DL (70-104); POTASSIUM 4.4 MMOL/L (3.5-5.1); SODIUM 140 MMOL/L (135-145); TOTAL CARBON DIOXIDE 26.4 MMOL/L (24-32); TOTAL PROTEIN 7.8 G/DL (6.4-8.2); eGFR 82 ML/MIN
[2018-12-29 22:09] LABS: PARTIAL THROMBOPLASTIN TIME 24 SECONDS (22-32)
[2018-12-29] MEDS ORDERED: mag hydrox/Alum hydrox/simeth 30ml oral suspension PO ONE (22:25)
[2018-12-29] MEDS ORDERED: famotidine 20mg tablet PO ONE (22:25)
[2018-12-29] MEDS ORDERED: HYDROcodone/acetaminophen 5mg/325mg tablet PO ONE (22:25)
[2018-12-29 22:38] LABS: LARGE PLATELETS MODERATE; PLATELET ESTIMATE NORMAL
[2018-12-29] MEDS ORDERED: ondansetron 4mg rapidly disintigrating tab PO ONE (22:40)
[2018-12-29 22:42] VITALS: BP 149/72
== END 2018-12-29 22:46 | disposition home or self-care (01) ==
LOC: ER 21:08
DX: R07.9 Chest pain, unspecified (principal); M54.6 Pain in thoracic spine; R06.02 Shortness of breath; F41.9 Anxiety disorder, unspecified; I25.10 Atherosclerotic heart disease of native coronary artery without angina pectoris; E78.00 Pure hypercholesterolemia, unspecified; I10 Essential (primary) hypertension; I25.2 Old myocardial infarction; J45.909 Unspecified asthma, uncomplicated; F12.90 Cannabis use, unspecified, uncomplicated; Z90.49 Acquired absence of other specified parts of digestive tract; Z95.1 Presence of aortocoronary bypass graft; Z98.890 Other specified postprocedural states; Z79.82 Long term (current) use of aspirin; Z79.899 Other long term (current) drug therapy
CPT/HCPCS: 36415; 71045; 80053; 84484; 85025; 85610; 85730; 93005; 99284

== ENCOUNTER 2019-03-11 21:44 | Emergency (ER) | payer MEDICAID ==
[~2019-03-11] VITALS: Ht 177.8 cm; Wt 118.2 kg
[~2019-03-11 21:44] MED LIST changes: -CLON-528 PO; +LORA-268 PO
[2019-03-11 21:46] VITALS: BP 146/68
--- NOTE | 2019-03-11 21:58 | NUR ---
PT TO X RAY
[2019-03-11 22:03] LABS: BASOPHILS # (AUTO) 0.1 X10'3 (0-0.2); BASOPHILS % (AUTO) 0.9 % (0-1); EOSINOPHILS # (AUTO) 0.1 X10'3 (0-0.9); EOSINOPHILS % (AUTO) 1.2 % (0-6); HEMATOCRIT 42.1 % (42.0-52.0); HEMOGLOBIN 14.5 g/dl (14.0-17.9); LYMPHOCYTES # (AUTO) 3.1 X10'3 (1.1-4.8); LYMPHOCYTES % (AUTO) 34.1 % (21-51); MEAN CORPUSCULAR HEMOGLOBIN 29.9 PG (27.0-31.0); MEAN CORPUSCULAR HGB CONC 34.5 g/dL (33.0-36.5); MEAN CORPUSCULAR VOLUME 86.8 FL (78-98); MEAN PLATELET VOLUME 10.3 FL (7.4-10.4); MONOCYTES # (AUTO) 0.7 X10'3 (0-0.9); MONOCYTES % (AUTO) 8.2 % (2-12); NEUTROPHILS # (AUTO) 5.1 X10'3 (1.8-7.7); NEUTROPHILS % (AUTO) 55.6 % (42-75); PLATELET COUNT 189 X10'3 (140-440); RED BLOOD COUNT 4.85 X10'6 (4.70-6.10); RED CELL DISTRIBUTION WIDTH 13.7 % (11.5-14.5); WHITE BLOOD COUNT 9.1 X10'3 (4.5-11.0)
[2019-03-11 22:19] LABS: ALANINE AMINOTRANSFERASE 132 U/L (12-78); ALBUMIN 4.2 G/DL (3.4-5.0); ALBUMIN/GLOBULIN RATIO 1.2 (1.1-1.5); ALKALINE PHOSPHATASE 85 IU/L (46-116); ANION GAP 11 (8-16); ASPARTATE AMINO TRANSFERASE 55 U/L (10-37); BILIRUBIN,TOTAL 0.5 MG/DL (0.1-1.0); BLOOD UREA NITROGEN 17 MG/DL (7-18); BUN/CREATININE RATIO 14.8 (5.4-32.0); CALCIUM 8.8 MG/DL (8.5-10.1); CHLORIDE 107 MMOL/L (99-107); CREATININE 1.15 MG/DL (0.60-1.10); GLUCOSE 93 MG/DL (70-104); POTASSIUM 4.1 MMOL/L (3.5-5.1); SODIUM 145 MMOL/L (135-145); TOTAL CARBON DIOXIDE 27.5 MMOL/L (24-32); TOTAL PROTEIN 7.6 G/DL (6.4-8.2); eGFR 73 ML/MIN
[2019-03-11 22:21] LABS: TROPONIN I < 0.04 NG/ML (0.0-0.05)
== END 2019-03-11 22:40 | disposition home or self-care (01) ==
LOC: ER 21:44
DX: R07.89 Other chest pain (principal); R61 Generalized hyperhidrosis; I25.10 Atherosclerotic heart disease of native coronary artery without angina pectoris; E78.00 Pure hypercholesterolemia, unspecified; I10 Essential (primary) hypertension; I25.2 Old myocardial infarction; J45.909 Unspecified asthma, uncomplicated; F41.9 Anxiety disorder, unspecified; F12.90 Cannabis use, unspecified, uncomplicated; Z90.49 Acquired absence of other specified parts of digestive tract; Z95.1 Presence of aortocoronary bypass graft; Z98.890 Other specified postprocedural states; Z79.82 Long term (current) use of aspirin; Z79.899 Other long term (current) drug therapy
CPT/HCPCS: 36415; 71045; 80053; 84484; 85025; 93005; 99284

== ENCOUNTER 2019-05-17 11:25 | Emergency (ER) | payer MEDICAID ==
[~2019-05-17] VITALS: Ht 177.8 cm; Wt 120.5 kg
[2019-05-17 12:07] LABS: BASOPHILS % (AUTO) 0.6 % (0-1); EOSINOPHILS # (AUTO) 0.1 X10'3 (0-0.9); EOSINOPHILS % (AUTO) 1.9 % (0-6); HEMATOCRIT 42.3 % (42.0-52.0); HEMOGLOBIN 14.6 g/dl (14.0-17.9); LYMPHOCYTES # (AUTO) 2.5 X10'3 (1.1-4.8); LYMPHOCYTES % (AUTO) 37.3 % (21-51); MEAN CORPUSCULAR HEMOGLOBIN 29.8 PG (27.0-31.0); MEAN CORPUSCULAR HGB CONC 34.4 g/dL (33.0-36.5); MEAN CORPUSCULAR VOLUME 86.6 FL (78-98); MEAN PLATELET VOLUME 10.4 FL (7.4-10.4); MONOCYTES # (AUTO) 0.5 X10'3 (0-0.9); NEUTROPHILS # (AUTO) 3.5 X10'3 (1.8-7.7); NEUTROPHILS % (AUTO) 53.2 % (42-75); PLATELET COUNT 145 X10'3 (140-440); RED BLOOD COUNT 4.89 X10'6 (4.70-6.10); RED CELL DISTRIBUTION WIDTH 13.6 % (11.5-14.5); WHITE BLOOD COUNT 6.6 X10'3 (4.5-11.0)
[2019-05-17 12:14] LABS: ALANINE AMINOTRANSFERASE 54 U/L (12-78); ALBUMIN 4.1 G/DL (3.4-5.0); ALBUMIN/GLOBULIN RATIO 1.2 (1.1-1.5); ALKALINE PHOSPHATASE 67 IU/L (46-116); ANION GAP 8 (8-16); ASPARTATE AMINO TRANSFERASE 25 U/L (10-37); BILIRUBIN,TOTAL 0.4 MG/DL (0.1-1.0); BLOOD UREA NITROGEN 10 MG/DL (7-18); BUN/CREATININE RATIO 9.6 (5.4-32.0); CALCIUM 9.4 MG/DL (8.5-10.1); CHLORIDE 105 MMOL/L (99-107); CREATININE 1.04 MG/DL (0.60-1.10); GLUCOSE 104 MG/DL (70-104); POTASSIUM 4.3 MMOL/L (3.5-5.1); SODIUM 140 MMOL/L (135-145); TOTAL CARBON DIOXIDE 27.3 MMOL/L (24-32); TOTAL PROTEIN 7.4 G/DL (6.4-8.2); eGFR 82 ML/MIN
--- NOTE | 2019-05-17 12:14 | NUR ---
Pt offered WC in Lobby d/t SOB. Refused. Walked on his own to FT with no noted SOB, O2 @ 95%, HR @ 51. Denies SOB as well.
[2019-05-17 12:47] VITALS: BP 125/83
== END 2019-05-17 12:50 | disposition home or self-care (01) ==
LOC: ER 11:25
DX: J45.909 Unspecified asthma, uncomplicated (principal); R07.89 Other chest pain; I25.10 Atherosclerotic heart disease of native coronary artery without angina pectoris; E78.00 Pure hypercholesterolemia, unspecified; I10 Essential (primary) hypertension; I25.2 Old myocardial infarction; F41.9 Anxiety disorder, unspecified; F12.90 Cannabis use, unspecified, uncomplicated; Z90.49 Acquired absence of other specified parts of digestive tract; Z95.1 Presence of aortocoronary bypass graft; Z98.890 Other specified postprocedural states; Z79.82 Long term (current) use of aspirin; Z79.899 Other long term (current) drug therapy
CPT/HCPCS: 36415; 71045; 80053; 84484; 85025; 93005; 99285

== ENCOUNTER 2019-07-29 14:14 | Emergency (ER) | payer MEDICAID ==
[~2019-07-29] VITALS: Ht 177.8 cm; Wt 126.0 kg
[2019-07-29 14:25] VITALS: BP 106/73
== END 2019-07-29 16:57 | disposition home or self-care (01) ==
LOC: ER 14:14
DX: S82.65XA Nondisplaced fracture of lateral malleolus of left fibula, initial encounter for closed fracture (principal); I25.10 Atherosclerotic heart disease of native coronary artery without angina pectoris; E78.00 Pure hypercholesterolemia, unspecified; I10 Essential (primary) hypertension; I25.2 Old myocardial infarction; J45.909 Unspecified asthma, uncomplicated; F41.9 Anxiety disorder, unspecified; F12.90 Cannabis use, unspecified, uncomplicated; Z90.49 Acquired absence of other specified parts of digestive tract; Z95.1 Presence of aortocoronary bypass graft; Z98.890 Other specified postprocedural states; Z79.82 Long term (current) use of aspirin; Z79.899 Other long term (current) drug therapy; X50.1XXA Overexertion from prolonged static or awkward postures, initial encounter; Y93.89 Activity, other specified; Y92.89 Other specified places as the place of occurrence of the external cause; Y99.8 Other external cause status
CPT/HCPCS: 73610; 73630; 99284

== ENCOUNTER 2019-08-22 19:13 | Emergency (ER) | payer MEDICAID ==
[~2019-08-22] VITALS: Ht 177.8 cm; Wt 127.3 kg
[2019-08-22 19:48] LABS: EOSINOPHILS # (AUTO) 0.1 X10'3 (0-0.9); HEMOGLOBIN 14.4 g/dl (14.0-17.9); LYMPHOCYTES # (AUTO) 1.4 X10'3 (1.1-4.8); MEAN CORPUSCULAR HGB CONC 33.2 g/dL (33.0-36.5); MONOCYTES # (AUTO) 0.7 X10'3 (0-0.9); NEUTROPHILS # (AUTO) 8.9 X10'3 (1.8-7.7); RED CELL DISTRIBUTION WIDTH 13.6 % (11.5-14.5)
[2019-08-22 19:50] LABS: BASOPHILS % (AUTO) 0.4 % (0-1); EOSINOPHILS % (AUTO) 0.7 % (0-6); HEMATOCRIT 43.5 % (42.0-52.0); LYMPHOCYTES % (AUTO) 12.5 % (21-51); MEAN CORPUSCULAR VOLUME 87.5 FL (78-98); MEAN PLATELET VOLUME 10.3 FL (7.4-10.4); MONOCYTES % (AUTO) 6.3 % (2-12); NEUTROPHILS % (AUTO) 80.1 % (42-75); PLATELET COUNT 135 X10'3 (140-440); RED BLOOD COUNT 4.97 X10'6 (4.70-6.10); WHITE BLOOD COUNT 11.1 X10'3 (4.5-11.0)
[2019-08-22] MEDS ORDERED: ondansetron/PF 4mg/2ml inj IV ONE ×2 (19:55→21:45)
[2019-08-22] MEDS ORDERED: morphine 4 MG/ML inj SYRINge IV PRN (19:55)
[2019-08-22] MEDS ORDERED: normal saline 1000ML IV soln IVB ONE (19:55)
[2019-08-22 20:02] LABS: ALANINE AMINOTRANSFERASE 67 U/L (12-78); ALBUMIN/GLOBULIN RATIO 1.1 (1.1-1.5); ALKALINE PHOSPHATASE 75 IU/L (46-116); ANION GAP 10 (8-16); ASPARTATE AMINO TRANSFERASE 29 U/L (10-37); BILIRUBIN,TOTAL 0.4 MG/DL (0.1-1.0); BLOOD UREA NITROGEN 15 MG/DL (7-18); BUN/CREATININE RATIO 12.7 (5.4-32.0); CALCIUM 9.7 MG/DL (8.5-10.1); CHLORIDE 103 MMOL/L (99-107); CREATININE 1.18 MG/DL (0.60-1.10); GLUCOSE 104 MG/DL (70-104); LIPASE 179 U/L (73-393); POTASSIUM 4.1 MMOL/L (3.5-5.1); SODIUM 138 MMOL/L (135-145); TOTAL CARBON DIOXIDE 24.9 MMOL/L (24-32); TOTAL PROTEIN 7.8 G/DL (6.4-8.2); eGFR 71 ML/MIN
[2019-08-22] MEDS ORDERED: ONDA8TAB6 PO (21:03)
[2019-08-22 21:55] VITALS: BP 149/96
== END 2019-08-22 21:57 | disposition home or self-care (01) ==
LOC: ER 19:14
DX: R11.2 Nausea with vomiting, unspecified (principal); R19.7 Diarrhea, unspecified; R10.12 Left upper quadrant pain; I25.10 Atherosclerotic heart disease of native coronary artery without angina pectoris; E78.00 Pure hypercholesterolemia, unspecified; I10 Essential (primary) hypertension; I25.2 Old myocardial infarction; J45.909 Unspecified asthma, uncomplicated; F12.90 Cannabis use, unspecified, uncomplicated; F41.9 Anxiety disorder, unspecified; Z90.49 Acquired absence of other specified parts of digestive tract; Z95.1 Presence of aortocoronary bypass graft; Z98.890 Other specified postprocedural states; Z79.82 Long term (current) use of aspirin; Z79.899 Other long term (current) drug therapy
CPT/HCPCS: 71045; 80053; 83690; 84484; 85025; 93005; 96361; 96374; 96375; 96376; 99285; J2270; J2405; J7030

== ENCOUNTER 2019-11-04 14:44 | Emergency (ER) | payer MEDICAID ==
[~2019-11-04] VITALS: Ht 177.8 cm; Wt 126.0 kg
[~2019-11-04 14:44] MED LIST changes: +ONDA8TAB6 PO
[2019-11-04 16:58] LABS: BASOPHILS % (AUTO) 0.5 % (0-1); EOSINOPHILS # (AUTO) 0.2 X10'3 (0-0.9); EOSINOPHILS % (AUTO) 3.2 % (0-6); HEMATOCRIT 42.4 % (42.0-52.0); HEMOGLOBIN 14.5 g/dl (14.0-17.9); LYMPHOCYTES # (AUTO) 2.8 X10'3 (1.1-4.8); LYMPHOCYTES % (AUTO) 41.1 % (21-51); MEAN CORPUSCULAR HEMOGLOBIN 29.7 PG (27.0-31.0); MEAN CORPUSCULAR HGB CONC 34.2 g/dL (33.0-36.5); MEAN CORPUSCULAR VOLUME 86.8 FL (78-98); MEAN PLATELET VOLUME 10.8 FL (7.4-10.4); MONOCYTES # (AUTO) 0.5 X10'3 (0-0.9); MONOCYTES % (AUTO) 7.2 % (2-12); NEUTROPHILS # (AUTO) 3.2 X10'3 (1.8-7.7); PLATELET COUNT 152 X10'3 (140-440); RED BLOOD COUNT 4.88 X10'6 (4.70-6.10); RED CELL DISTRIBUTION WIDTH 13.6 % (11.5-14.5); WHITE BLOOD COUNT 6.8 X10'3 (4.5-11.0)
[2019-11-04 17:09] LABS: ALANINE AMINOTRANSFERASE 62 U/L (12-78); ALBUMIN 4.3 G/DL (3.4-5.0); ALBUMIN/GLOBULIN RATIO 1.1 (1.1-1.5); ALKALINE PHOSPHATASE 77 IU/L (46-116); ANION GAP 10 (8-16); ASPARTATE AMINO TRANSFERASE 31 U/L (10-37); BILIRUBIN,TOTAL 0.5 MG/DL (0.1-1.0); BLOOD UREA NITROGEN 17 MG/DL (7-18); BUN/CREATININE RATIO 18.5 (5.4-32.0); CALCIUM 9.6 MG/DL (8.5-10.1); CHLORIDE 102 MMOL/L (99-107); CREATININE 0.92 MG/DL (0.60-1.10); GLUCOSE 92 MG/DL (70-104); POTASSIUM 4.1 MMOL/L (3.5-5.1); SODIUM 136 MMOL/L (135-145); TOTAL PROTEIN 8.1 G/DL (6.4-8.2); eGFR > 90 ML/MIN
[2019-11-04 17:44] LABS: LARGE PLATELETS MODERATE; PLATELET ESTIMATE NORMAL
[2019-11-04 18:00] VITALS: BP 142/89
== END 2019-11-04 18:02 | disposition home or self-care (01) ==
LOC: ER 14:44
DX: R42 Dizziness and giddiness (principal); R07.89 Other chest pain; I25.10 Atherosclerotic heart disease of native coronary artery without angina pectoris; E78.00 Pure hypercholesterolemia, unspecified; I10 Essential (primary) hypertension; I25.2 Old myocardial infarction; J45.909 Unspecified asthma, uncomplicated; F41.9 Anxiety disorder, unspecified; F12.90 Cannabis use, unspecified, uncomplicated; Z90.89 Acquired absence of other organs; Z98.890 Other specified postprocedural states; Z79.82 Long term (current) use of aspirin; Z79.899 Other long term (current) drug therapy
CPT/HCPCS: 36415; 71045; 80053; 83880; 84484; 85008; 85025; 93005; 99285

== ENCOUNTER 2020-03-20 14:14 | Emergency (ER) | payer MEDICAID ==
[~2020-03-20] VITALS: Ht 177.8 cm; Wt 109.3 kg
[2020-03-20 14:29] VITALS: BP 133/81
[2020-03-20 15:17] LABS: ALANINE AMINOTRANSFERASE 55 U/L (12-78); ALBUMIN 4.2 G/DL (3.4-5.0); ALBUMIN/GLOBULIN RATIO 1.2 (1.1-1.5); ALKALINE PHOSPHATASE 80 IU/L (46-116); ANION GAP 9 (8-16); ASPARTATE AMINO TRANSFERASE 31 U/L (10-37); BILIRUBIN,TOTAL 0.6 MG/DL (0.1-1.0); BLOOD UREA NITROGEN 16 MG/DL (7-18); BUN/CREATININE RATIO 17.8 (5.4-32.0); CALCIUM 9.3 MG/DL (8.5-10.1); CHLORIDE 104 MMOL/L (99-107); GLUCOSE 108 MG/DL (70-104); POTASSIUM 4.4 MMOL/L (3.5-5.1); SODIUM 137 MMOL/L (135-145); TOTAL PROTEIN 7.7 G/DL (6.4-8.2); eGFR > 90 ML/MIN
[2020-03-20 15:32] LABS: BASOPHILS % (AUTO) 0.7 % (0-1); EOSINOPHILS # (AUTO) 0.1 X10'3 (0-0.9); EOSINOPHILS % (AUTO) 1.1 % (0-6); HEMATOCRIT 44.1 % (42.0-52.0); HEMOGLOBIN 14.5 g/dl (14.0-17.9); LYMPHOCYTES # (AUTO) 1.9 X10'3 (1.1-4.8); MEAN CORPUSCULAR HEMOGLOBIN 29.4 PG (27.0-31.0); MEAN CORPUSCULAR HGB CONC 32.9 g/dL (33.0-36.5); MEAN CORPUSCULAR VOLUME 89.3 FL (78-98); MEAN PLATELET VOLUME 10.8 FL (7.4-10.4); MONOCYTES # (AUTO) 0.5 X10'3 (0-0.9); MONOCYTES % (AUTO) 7.4 % (2-12); NEUTROPHILS # (AUTO) 3.9 X10'3 (1.8-7.7); NEUTROPHILS % (AUTO) 60.8 % (42-75); PLATELET COUNT 161 X10'3 (140-440); RED BLOOD COUNT 4.94 X10'6 (4.70-6.10); RED CELL DISTRIBUTION WIDTH 13.5 % (11.5-14.5); WHITE BLOOD COUNT 6.5 X10'3 (4.5-11.0)
--- NOTE | 2020-03-20 15:56 | NUR ---
I had placed patient in room and no 5 lead for the monitor was found so I left the room to get leads. When I returned with leads, I placed them on patients chest. Patient then stated that he was, " outta here". he stated I just heard them stated that patient needed isolation and the nurse wasn't wearing isolation gear. I stated that I don't believe that patient needed it, but that another patients clinical status I was unable to disclose. Patient proceeded to remove leads and get dressed. Wished us a good day and walked out of ED. Dr. Epstein aware.
[2020-03-20 16:19] LABS: LARGE PLATELETS MODERATE; PLATELET ESTIMATE NORMAL
== END 2020-03-20 16:23 | disposition left against medical advice (07) ==
LOC: ER 14:15
DX: R07.89 Other chest pain (principal); Z53.21 Procedure and treatment not carried out due to patient leaving prior to being seen by health care provider
CPT/HCPCS: 36415; 71045; 80053; 83880; 84484; 85008; 85025; 93005

== ENCOUNTER 2020-05-30 13:44 | Emergency (ER) | payer MEDICAID ==
[~2020-05-30] VITALS: Ht 177.8 cm; Wt 106.8 kg
[~2020-05-30 13:44] MED LIST changes: -LISI-604 PO; +LISI-790 PO
[2020-05-30 13:46] VITALS: BP 136/93
[2020-05-30] MEDS ORDERED: TETanus/Pertussis (Acell)/Diphther VAC/PF (Tdap-Adult) 0.5ml syringe IMVAC ONE (14:30)
[2020-05-30] MEDS ORDERED: LIDOcaine 1% 30ml preserv. free vial IJ ONE (14:30)
== END 2020-05-30 15:55 | disposition home or self-care (01) ==
LOC: ER 13:45
DX: L03.012 Cellulitis of left finger (principal); I25.10 Atherosclerotic heart disease of native coronary artery without angina pectoris; E78.00 Pure hypercholesterolemia, unspecified; I10 Essential (primary) hypertension; I25.2 Old myocardial infarction; J45.909 Unspecified asthma, uncomplicated; F41.9 Anxiety disorder, unspecified; F12.90 Cannabis use, unspecified, uncomplicated; Z90.49 Acquired absence of other specified parts of digestive tract; Z95.1 Presence of aortocoronary bypass graft; Z98.890 Other specified postprocedural states; Z79.82 Long term (current) use of aspirin; Z79.899 Other long term (current) drug therapy
CPT/HCPCS: 10060; 90471; 90715; 99283

== ENCOUNTER 2020-06-04 17:14 | Emergency (ER) | payer MEDICAID ==
[~2020-06-04] VITALS: Ht 177.8 cm; Wt 106.8 kg
[2020-06-04 17:47] LABS: BASOPHILS % (AUTO) 0.6 % (0-1); EOSINOPHILS # (AUTO) 0.2 X10'3 (0-0.9); HEMOGLOBIN 14.8 g/dl (14.0-17.9); LYMPHOCYTES # (AUTO) 2.8 X10'3 (1.1-4.8); LYMPHOCYTES % (AUTO) 35.6 % (21-51); MEAN CORPUSCULAR HEMOGLOBIN 29.7 PG (27.0-31.0); MEAN CORPUSCULAR HGB CONC 33.8 g/dL (33.0-36.5); MEAN CORPUSCULAR VOLUME 88.1 FL (78-98); MEAN PLATELET VOLUME 10.7 FL (7.4-10.4); MONOCYTES # (AUTO) 0.6 X10'3 (0-0.9); NEUTROPHILS # (AUTO) 4.3 X10'3 (1.8-7.7); NEUTROPHILS % (AUTO) 54.8 % (42-75); PLATELET COUNT 173 X10'3 (140-440); RED BLOOD COUNT 4.99 X10'6 (4.70-6.10); RED CELL DISTRIBUTION WIDTH 13.1 % (11.5-14.5); WHITE BLOOD COUNT 7.9 X10'3 (4.5-11.0)
[2020-06-04 17:57] LABS: ALANINE AMINOTRANSFERASE 57 U/L (12-78); ALBUMIN/GLOBULIN RATIO 1.1 (1.1-1.5); ALKALINE PHOSPHATASE 76 IU/L (46-116); ANION GAP 14 (8-16); ASPARTATE AMINO TRANSFERASE 29 U/L (10-37); BILIRUBIN,TOTAL 0.5 MG/DL (0.1-1.0); BLOOD UREA NITROGEN 13 MG/DL (7-18); BUN/CREATININE RATIO 11.9 (5.4-32.0); CALCIUM 9.2 MG/DL (8.5-10.1); CHLORIDE 102 MMOL/L (99-107); CREATININE 1.09 MG/DL (0.60-1.10); GLUCOSE 129 MG/DL (70-104); POTASSIUM 3.9 MMOL/L (3.5-5.1); SODIUM 141 MMOL/L (135-145); TOTAL PROTEIN 7.5 G/DL (6.4-8.2); eGFR 77 ML/MIN
[2020-06-04] MEDS ORDERED: aspirin 325mg tablet PO ONE (18:15)
[2020-06-04] MEDS: nitroGLYCERIN 0.4mg SUBLingual tab SL PRN ×2 (18:27→18:44)
[2020-06-04] MEDS ORDERED: clonazePAM 1mg tablet PO ONE (18:35)
[2020-06-04] MEDS ORDERED: enoxaparin 100mg/ml syringe SUBCUT ONE (20:10)
[2020-06-04] MEDS ORDERED: metoprolol tartrate 50mg tablet PO ONE ×2 (20:10→20:15)
[2020-06-04] MEDS ORDERED: metoprolol tartrate 1mg/ml inj IV ONE (20:10)
[2020-06-04] MEDS ORDERED: metoprolol tartrate 25mg tablet PO ONE (20:10)
[2020-06-04] MEDS ORDERED: CLON-371 PO (20:33)
[2020-06-04] MEDS ORDERED: DEXT30CA6 PO (20:56)
[2020-06-04 21:23] LABS: D-DIMER < 0.19 MG/L FEU (0-0.50)
[2020-06-04] MEDS ORDERED: potassium Cl 40MEQ/1/2NS 520ml 520 ML IV PRN ×2 (21:25)
[2020-06-04] MEDS ORDERED: mag hydrox/Alum hydrox/simeth 30ml oral suspension PO PRN (21:25)
[2020-06-04] MEDS ORDERED: acetaminophen 325mg tablet PO PRN (21:25)
[2020-06-04] MEDS ORDERED: potassium Cl 20 mEq SR tablet PO PRN ×2 (21:25)
[2020-06-04] MEDS ORDERED: magnesium hydroxide 30ml (MOM) UD suspension PO PRN (21:25)
[2020-06-04] MEDS ORDERED: ondansetron/PF 4mg/2ml inj IV PRN (21:25)
[2020-06-04] MEDS ORDERED: nitroGLYCERIN 0.4mg SUBLingual tab SL PRN (21:30)
[2020-06-04] MEDS ORDERED: iohexol 350MG/ML 100ml bottle IV ONE (21:58)
[2020-06-04 23:40] VITALS: BP 121/70
--- NOTE | 2020-06-05 00:35 | NUR ---
Pt was going to be transported to [facility] and became upset, pt stated no doctor had been here to talking to him despite speaking with ER physician and hospitalist. Pt says he has a lot of things going on and would rather at home than here. Dr Huizar was called to reassure patient. Pt decided to rip out his IV and leave AMA.
[2020-06-05] MEDS ORDERED: aspirin 81mg tablet.DR PO SCH (08:00)
[2020-06-05] MEDS ORDERED: metoprolol tartrate 50mg tablet PO SCH (08:00)
[2020-06-05] MEDS ORDERED: atorvastatin 20mg tablet PO SCH (08:00)
[2020-06-05] MEDS ORDERED: lisinopril 5mg tablet PO SCH (08:00)
[2020-06-05] MEDS ORDERED: K and/or MAG REPLACEMENT MC SCH (08:00)
== END 2020-06-05 04:40 | disposition left against medical advice (07) ==
LOC: ER 17:14 → UNDOADMIN 21:23 → ED HOLD 21:23 → UNDODISIN 06-05 00:40 → ER 06-05 04:40
DX: I24.9 Acute ischemic heart disease, unspecified (principal); R07.89 Other chest pain; I25.10 Atherosclerotic heart disease of native coronary artery without angina pectoris; E78.00 Pure hypercholesterolemia, unspecified; I10 Essential (primary) hypertension; I25.2 Old myocardial infarction; J45.909 Unspecified asthma, uncomplicated; F41.9 Anxiety disorder, unspecified; F12.90 Cannabis use, unspecified, uncomplicated; Z90.89 Acquired absence of other organs; Z98.890 Other specified postprocedural states; Z79.899 Other long term (current) drug therapy; Z79.82 Long term (current) use of aspirin
CPT/HCPCS: 36415; 71045; 71275; 74174; 80053; 83880; 84484; 85025; 85379; 93005; 96372; 99285; Q9967; G0378; J1650

== ENCOUNTER 2020-10-12 14:59 | Emergency (ER) | payer MEDICAID ==
[~2020-10-12] VITALS: Ht 177.8 cm; Wt 109.5 kg
[~2020-10-12 14:59] MED LIST changes: +CLON-371 PO; +DEXT30CA6 PO; -LORA-268 PO; -ONDA8TAB6 PO
[2020-10-12 15:15] VITALS: BP 138/81
[2020-10-12] MEDS ORDERED: ketorolac trometh. 30mg/ml inj. IM ONE (15:30)
== END 2020-10-12 21:11 | disposition left against medical advice (07) ==
LOC: ER 15:00
DX: M70.22 Olecranon bursitis, left elbow (principal); M25.522 Pain in left elbow; I25.10 Atherosclerotic heart disease of native coronary artery without angina pectoris; E78.00 Pure hypercholesterolemia, unspecified; I10 Essential (primary) hypertension; I25.2 Old myocardial infarction; J45.909 Unspecified asthma, uncomplicated; F41.9 Anxiety disorder, unspecified; F12.90 Cannabis use, unspecified, uncomplicated; Z90.89 Acquired absence of other organs; Z98.890 Other specified postprocedural states; Z79.82 Long term (current) use of aspirin; Z79.899 Other long term (current) drug therapy
CPT/HCPCS: 73080; 99283

== ENCOUNTER 2020-10-25 17:53 | Emergency (ER) | payer MEDICAID ==
[~2020-10-25] VITALS: Ht 177.8 cm; Wt 111.4 kg
[2020-10-25] MEDS ORDERED: aspirin 81mg tab.chew PO ONE (18:20)
[2020-10-25] MEDS ORDERED: ondansetron/PF 4mg/2ml inj IV ONE (18:20)
[2020-10-25] MEDS ORDERED: nitroGLYCERIN 0.4mg SUBLingual tab SL PRN (18:20)
[2020-10-25 18:58] LABS: BASOPHILS % (AUTO) 0.6 % (0-1); EOSINOPHILS # (AUTO) 0.1 X10'3 (0-0.9); EOSINOPHILS % (AUTO) 1.3 % (0-6); HEMATOCRIT 43.5 % (42.0-52.0); HEMOGLOBIN 14.5 g/dl (14.0-17.9); LYMPHOCYTES # (AUTO) 2.3 X10'3 (1.1-4.8); LYMPHOCYTES % (AUTO) 35.5 % (21-51); MEAN CORPUSCULAR HEMOGLOBIN 30.1 PG (27.0-31.0); MEAN CORPUSCULAR HGB CONC 33.4 g/dL (33.0-36.5); MEAN PLATELET VOLUME 9.9 FL (7.4-10.4); MONOCYTES # (AUTO) 0.5 X10'3 (0-0.9); MONOCYTES % (AUTO) 8.4 % (2-12); NEUTROPHILS # (AUTO) 3.5 X10'3 (1.8-7.7); NEUTROPHILS % (AUTO) 54.2 % (42-75); PLATELET COUNT 161 X10'3 (140-440); RED BLOOD COUNT 4.83 X10'6 (4.70-6.10); RED CELL DISTRIBUTION WIDTH 13.4 % (11.5-14.5); WHITE BLOOD COUNT 6.5 X10'3 (4.5-11.0)
[2020-10-25 19:01] LABS: ALANINE AMINOTRANSFERASE 55 U/L (12-78); ALBUMIN 4.4 G/DL (3.4-5.0); ALBUMIN/GLOBULIN RATIO 1.3 (1.1-1.5); ALKALINE PHOSPHATASE 58 IU/L (46-116); ANION GAP 9 (8-16); ASPARTATE AMINO TRANSFERASE 35 U/L (10-37); BILIRUBIN,TOTAL 0.5 MG/DL (0.1-1.0); BLOOD UREA NITROGEN 13 MG/DL (7-18); BUN/CREATININE RATIO 14.1 (5.4-32.0); CALCIUM 9.2 MG/DL (8.5-10.1); CHLORIDE 103 MMOL/L (99-107); CREATININE 0.92 MG/DL (0.60-1.10); GLUCOSE 114 MG/DL (70-104); POTASSIUM 4.2 MMOL/L (3.5-5.1); SODIUM 140 MMOL/L (135-145); TOTAL CARBON DIOXIDE 27.9 MMOL/L (24-32); TOTAL PROTEIN 7.8 G/DL (6.4-8.2); eGFR > 90 ML/MIN
--- NOTE | 2020-10-25 20:04 | NUR ---
patient reported having chest pain to provider. patient refuses nitro at this time stating it is "just from anxiety" provider aware orders received
[2020-10-25] MEDS ORDERED: LORazepam 1 MG tablet PO ONE (20:05)
[2020-10-25 21:58] VITALS: BP 134/82
== END 2020-10-25 22:00 | disposition left against medical advice (07) ==
LOC: ER 17:54
DX: R07.89 Other chest pain (principal); F41.9 Anxiety disorder, unspecified; I25.10 Atherosclerotic heart disease of native coronary artery without angina pectoris; E78.00 Pure hypercholesterolemia, unspecified; I10 Essential (primary) hypertension; I25.2 Old myocardial infarction; J44.9 Chronic obstructive pulmonary disease, unspecified; F12.90 Cannabis use, unspecified, uncomplicated; Z90.89 Acquired absence of other organs; Z98.890 Other specified postprocedural states; Z79.82 Long term (current) use of aspirin; Z79.899 Other long term (current) drug therapy
CPT/HCPCS: 36415; 71045; 80053; 83735; 83880; 84484; 85025; 93005; 99285

== ENCOUNTER 2020-11-22 00:59 | Emergency (ER) | payer MEDICAID ==
[~2020-11-22] VITALS: Ht 177.8 cm; Wt 111.3 kg
[2020-11-22 01:20] VITALS: BP 160/97
[2020-11-22] MEDS ORDERED: IBUP-1984 PO (02:35)
== END 2020-11-22 02:59 | disposition home or self-care (01) ==
LOC: ER 01:01
DX: R59.1 Generalized enlarged lymph nodes (principal); M54.2 Cervicalgia; I25.10 Atherosclerotic heart disease of native coronary artery without angina pectoris; E78.00 Pure hypercholesterolemia, unspecified; I10 Essential (primary) hypertension; I25.2 Old myocardial infarction; J45.909 Unspecified asthma, uncomplicated; F41.9 Anxiety disorder, unspecified; F12.90 Cannabis use, unspecified, uncomplicated; Z90.89 Acquired absence of other organs; Z98.890 Other specified postprocedural states; Z79.82 Long term (current) use of aspirin; Z79.899 Other long term (current) drug therapy
CPT/HCPCS: 99282

== ENCOUNTER 2021-01-05 01:44 | Emergency (ER) | payer MEDICAID ==
[~2021-01-05] VITALS: Ht 177.8 cm; Wt 115.0 kg
[~2021-01-05 01:44] MED LIST changes: -LISI-790 PO; +LISI5TAB22 PO
[2021-01-05 02:03] LABS: BASOPHILS # (AUTO) 0.1 X10'3 (0-0.2); BASOPHILS % (AUTO) 0.9 % (0-1); EOSINOPHILS # (AUTO) 0.1 X10'3 (0-0.9); EOSINOPHILS % (AUTO) 0.8 % (0-6); HEMATOCRIT 43.3 % (42.0-52.0); HEMOGLOBIN 15.2 g/dl (14.0-17.9); LYMPHOCYTES # (AUTO) 2.6 X10'3 (1.1-4.8); MEAN CORPUSCULAR HEMOGLOBIN 30.4 PG (27.0-31.0); MEAN CORPUSCULAR HGB CONC 35.1 g/dL (33.0-36.5); MEAN CORPUSCULAR VOLUME 86.6 FL (78-98); MEAN PLATELET VOLUME 9.5 FL (7.4-10.4); MONOCYTES # (AUTO) 0.4 X10'3 (0-0.9); MONOCYTES % (AUTO) 5.3 % (2-12); NEUTROPHILS # (AUTO) 4.8 X10'3 (1.8-7.7); PLATELET COUNT 197 X10'3 (140-440); RED CELL DISTRIBUTION WIDTH 13.5 % (11.5-14.5)
[2021-01-05 02:12] LABS: PARTIAL THROMBOPLASTIN TIME 25 SECONDS (22-32)
[2021-01-05 02:14] VITALS: BP 113/72
[2021-01-05 02:15] LABS: ALANINE AMINOTRANSFERASE 95 U/L (12-78); ALBUMIN 4.1 G/DL (3.4-5.0); ALBUMIN/GLOBULIN RATIO 1.1 (1.1-1.5); ALKALINE PHOSPHATASE 69 IU/L (46-116); ANION GAP 10 (8-16); ASPARTATE AMINO TRANSFERASE 46 U/L (10-37); BILIRUBIN,TOTAL 0.7 MG/DL (0.1-1.0); BLOOD UREA NITROGEN 9 MG/DL (7-18); BUN/CREATININE RATIO 9.2 (5.4-32.0); CALCIUM 8.9 MG/DL (8.5-10.1); CHLORIDE 105 MMOL/L (99-107); CREATININE 0.98 MG/DL (0.60-1.10); GLUCOSE 92 MG/DL (70-104); POTASSIUM 3.6 MMOL/L (3.5-5.1); SODIUM 142 MMOL/L (135-145); eGFR 88 ML/MIN
[2021-01-05 02:21] LABS: MAGNESIUM 2.3 MG/DL (1.5-2.4)
== END 2021-01-05 03:47 | disposition left against medical advice (07) ==
LOC: ER 01:44
DX: R00.0 Tachycardia, unspecified (principal); R00.2 Palpitations; I25.10 Atherosclerotic heart disease of native coronary artery without angina pectoris; E78.00 Pure hypercholesterolemia, unspecified; I10 Essential (primary) hypertension; I25.2 Old myocardial infarction; F12.90 Cannabis use, unspecified, uncomplicated; J45.909 Unspecified asthma, uncomplicated; Z87.81 Personal history of (healed) traumatic fracture; Z90.49 Acquired absence of other specified parts of digestive tract; Z95.5 Presence of coronary angioplasty implant and graft; Z79.82 Long term (current) use of aspirin; Z79.899 Other long term (current) drug therapy
CPT/HCPCS: 36415; 71045; 80053; 83735; 83880; 84484; 85025; 85610; 85730; 93005; 99285

== ENCOUNTER 2021-04-24 17:38 | Emergency (ER) | payer MEDICAID ==
[~2021-04-24] VITALS: Ht 177.8 cm; Wt 113.6 kg
[2021-04-24 19:07] LABS: BASOPHILS # (AUTO) 0.1 X10'3 (0-0.2); BASOPHILS % (AUTO) 0.7 % (0-1); EOSINOPHILS # (AUTO) 0.1 X10'3 (0-0.9); HEMATOCRIT 42.7 % (42.0-52.0); HEMOGLOBIN 14.6 g/dl (14.0-17.9); LYMPHOCYTES # (AUTO) 2.4 X10'3 (1.1-4.8); LYMPHOCYTES % (AUTO) 30.6 % (21-51); MEAN CORPUSCULAR HEMOGLOBIN 29.5 PG (27.0-31.0); MEAN CORPUSCULAR HGB CONC 34.1 g/dL (33.0-36.5); MEAN CORPUSCULAR VOLUME 86.7 FL (78-98); MEAN PLATELET VOLUME 9.7 FL (7.4-10.4); MONOCYTES # (AUTO) 0.6 X10'3 (0-0.9); MONOCYTES % (AUTO) 7.6 % (2-12); NEUTROPHILS # (AUTO) 4.7 X10'3 (1.8-7.7); NEUTROPHILS % (AUTO) 60.1 % (42-75); PLATELET COUNT 168 X10'3 (140-440); RED BLOOD COUNT 4.93 X10'6 (4.70-6.10); RED CELL DISTRIBUTION WIDTH 13.1 % (11.5-14.5); WHITE BLOOD COUNT 7.9 X10'3 (4.5-11.0)
[2021-04-24 19:09] VITALS: BP 133/88
[2021-04-24 19:23] LABS: ALANINE AMINOTRANSFERASE 68 U/L (12-78); ALBUMIN 4.4 G/DL (3.4-5.0); ALBUMIN/GLOBULIN RATIO 1.2 (1.1-1.5); ANION GAP 11 (8-16); ASPARTATE AMINO TRANSFERASE 39 U/L (10-37); BILIRUBIN,TOTAL 0.4 MG/DL (0.1-1.0); BLOOD UREA NITROGEN 14 MG/DL (7-18); BUN/CREATININE RATIO 14.9 (5.4-32.0); CALCIUM 9.4 MG/DL (8.5-10.1); CHLORIDE 102 MMOL/L (99-107); CREATININE 0.94 MG/DL (0.60-1.10); GLUCOSE 84 MG/DL (70-104); SODIUM 139 MMOL/L (135-145); TOTAL CARBON DIOXIDE 25.9 MMOL/L (24-32); eGFR > 90 ML/MIN
== END 2021-04-24 21:35 | disposition home or self-care (01) ==
LOC: ER 17:39
DX: F41.9 Anxiety disorder, unspecified (principal); R07.89 Other chest pain; R42 Dizziness and giddiness; R06.02 Shortness of breath; I25.10 Atherosclerotic heart disease of native coronary artery without angina pectoris; E78.00 Pure hypercholesterolemia, unspecified; I10 Essential (primary) hypertension; I25.2 Old myocardial infarction; J45.909 Unspecified asthma, uncomplicated; F12.90 Cannabis use, unspecified, uncomplicated; Z90.89 Acquired absence of other organs; Z98.890 Other specified postprocedural states; Z79.82 Long term (current) use of aspirin; Z79.899 Other long term (current) drug therapy
CPT/HCPCS: 36415; 71045; 80053; 83880; 84484; 85025; 93005; 99285

== ENCOUNTER 2021-06-14 13:06 | Emergency (ER) | payer MEDICAID ==
[~2021-06-14] VITALS: Ht 177.8 cm; Wt 116.8 kg
[2021-06-14 13:40] LABS: BASOPHILS # (AUTO) 0.1 X10'3 (0-0.2); BASOPHILS % (AUTO) 0.9 % (0-1); EOSINOPHILS # (AUTO) 0.1 X10'3 (0-0.9); EOSINOPHILS % (AUTO) 1.7 % (0-6); HEMATOCRIT 44.6 % (42.0-52.0); HEMOGLOBIN 14.9 g/dl (14.0-17.9); LYMPHOCYTES # (AUTO) 2.2 X10'3 (1.1-4.8); LYMPHOCYTES % (AUTO) 37.2 % (21-51); MEAN CORPUSCULAR HEMOGLOBIN 28.9 PG (27.0-31.0); MEAN CORPUSCULAR HGB CONC 33.4 g/dL (33.0-36.5); MEAN CORPUSCULAR VOLUME 86.5 FL (78-98); MEAN PLATELET VOLUME 9.6 FL (7.4-10.4); MONOCYTES # (AUTO) 0.4 X10'3 (0-0.9); MONOCYTES % (AUTO) 6.1 % (2-12); NEUTROPHILS # (AUTO) 3.3 X10'3 (1.8-7.7); NEUTROPHILS % (AUTO) 54.1 % (42-75); PLATELET COUNT 186 X10'3 (140-440); RED BLOOD COUNT 5.16 X10'6 (4.70-6.10); RED CELL DISTRIBUTION WIDTH 13.4 % (11.5-14.5)
[2021-06-14 13:54] LABS: ALANINE AMINOTRANSFERASE 78 U/L (12-78); ALBUMIN 4.4 G/DL (3.4-5.0); ALBUMIN/GLOBULIN RATIO 1.2 (1.1-1.5); ALKALINE PHOSPHATASE 61 IU/L (46-116); ANION GAP 9 (8-16); ASPARTATE AMINO TRANSFERASE 44 U/L (10-37); BILIRUBIN,TOTAL 0.8 MG/DL (0.1-1.0); BLOOD UREA NITROGEN 17 MG/DL (7-18); BUN/CREATININE RATIO 19.3 (5.4-32.0); CALCIUM 9.4 MG/DL (8.5-10.1); CHLORIDE 104 MMOL/L (99-107); CREATININE 0.88 MG/DL (0.60-1.10); GLUCOSE 133 MG/DL (70-104); POTASSIUM 4.1 MMOL/L (3.5-5.1); SODIUM 141 MMOL/L (135-145); TOTAL CARBON DIOXIDE 28.3 MMOL/L (24-32); TOTAL PROTEIN 8.1 G/DL (6.4-8.2); eGFR > 90 ML/MIN
[2021-06-14] MEDS ORDERED: magnesium oxide 400mg tablet PO ONE (14:35)
[2021-06-14 14:44] VITALS: BP 146/98
== END 2021-06-14 14:46 | disposition home or self-care (01) ==
LOC: ER 13:06
DX: R00.2 Palpitations (principal); I20.9 Angina pectoris, unspecified; R07.89 Other chest pain; E78.00 Pure hypercholesterolemia, unspecified; I10 Essential (primary) hypertension; I25.2 Old myocardial infarction; J45.909 Unspecified asthma, uncomplicated; F41.9 Anxiety disorder, unspecified; F12.90 Cannabis use, unspecified, uncomplicated; Z90.89 Acquired absence of other organs; Z98.890 Other specified postprocedural states; Z79.82 Long term (current) use of aspirin; Z79.899 Other long term (current) drug therapy
CPT/HCPCS: 36415; 71045; 80053; 83880; 84484; 85025; 93005; 99285

== ENCOUNTER 2022-05-14 00:19 | Emergency (ER) | payer MEDICAID ==
[~2022-05-14] VITALS: Ht 177.8 cm; Wt 113.0 kg
[2022-05-14 01:01] LABS: BASOPHILS % (AUTO) 0.6 % (0-1); EOSINOPHILS # (AUTO) 0.2 X10'3 (0-0.9); EOSINOPHILS % (AUTO) 2.3 % (0-6); HEMATOCRIT 41.6 % (42.0-52.0); HEMOGLOBIN 14.8 g/dl (14.0-17.9); LYMPHOCYTES # (AUTO) 3.3 X10'3 (1.1-4.8); MEAN CORPUSCULAR HEMOGLOBIN 30.9 PG (27.0-31.0); MEAN CORPUSCULAR HGB CONC 35.5 g/dL (33.0-36.5); MEAN CORPUSCULAR VOLUME 87.1 FL (78-98); MEAN PLATELET VOLUME 9.7 FL (7.4-10.4); MONOCYTES # (AUTO) 0.5 X10'3 (0-0.9); MONOCYTES % (AUTO) 5.6 % (2-12); NEUTROPHILS # (AUTO) 4.7 X10'3 (1.8-7.7); NEUTROPHILS % (AUTO) 53.5 % (42-75); PLATELET COUNT 198 X10'3 (140-440); RED BLOOD COUNT 4.78 X10'6 (4.70-6.10); RED CELL DISTRIBUTION WIDTH 12.9 % (11.5-14.5); WHITE BLOOD COUNT 8.7 X10'3 (4.5-11.0)
[2022-05-14 01:15] LABS: TOTAL CARBON DIOXIDE 24.9 MMOL/L (24-32)
[2022-05-14 01:21] VITALS: BP 136/97
[2022-05-14 01:44] LABS: ALANINE AMINOTRANSFERASE 48 U/L (12-78); ALBUMIN 4.3 G/DL (3.4-5.0); ALBUMIN/GLOBULIN RATIO 1.1 (1.1-1.5); ALKALINE PHOSPHATASE 74 IU/L (46-116); ANION GAP 13 (8-16); ASPARTATE AMINO TRANSFERASE 36 U/L (10-37); BILIRUBIN,TOTAL 0.3 MG/DL (0.1-1.0); BLOOD UREA NITROGEN 18 MG/DL (7-18); BUN/CREATININE RATIO 12.8 (5.4-32.0); CALCIUM 9.6 MG/DL (8.5-10.1); CHLORIDE 102 MMOL/L (99-107); CREATININE 1.41 MG/DL (0.60-1.10); GLUCOSE 161 MG/DL (70-104); POTASSIUM 3.8 MMOL/L (3.5-5.1); SODIUM 140 MMOL/L (135-145); TOTAL PROTEIN 8.1 G/DL (6.4-8.2); eGFR 57 ML/MIN
--- NOTE | 2022-05-14 02:39 | NUR ---
Patient does not wish to wait for 2nd trop results. Patient is willing to stay for lab draw and to be called if elevated. Patient has signed AMA documentation. Pending 0250 lab draw time.
== END 2022-05-14 03:14 | disposition left against medical advice (07) ==
LOC: ER 00:20
DX: R07.89 Other chest pain (principal); I25.10 Atherosclerotic heart disease of native coronary artery without angina pectoris; I10 Essential (primary) hypertension; I25.2 Old myocardial infarction; E78.00 Pure hypercholesterolemia, unspecified; J45.909 Unspecified asthma, uncomplicated; F41.9 Anxiety disorder, unspecified; F12.90 Cannabis use, unspecified, uncomplicated; Z90.49 Acquired absence of other specified parts of digestive tract; Z95.1 Presence of aortocoronary bypass graft; Z98.890 Other specified postprocedural states; Z79.82 Long term (current) use of aspirin; Z79.899 Other long term (current) drug therapy
CPT/HCPCS: 36415; 71045; 80053; 83880; 84484; 85025; 93005; 99285